=== PATIENT | male | born 1945 | race Caucasian/White ===

== ENCOUNTER 2018-09-01 14:31 | Emergency (ER) | payer MEDICARE, OTHER, SELFPAY ==
[2018-09-01 14:33] VITALS: BP 142/89; PULSE 89; RESP 16; TEMP 36.3; O2SAT 96; BMI 43.7
--- NOTE | 2018-09-01 15:26 | ED.DCSUM_ITS ---
- ER Visit Summary Date of Service: 09/01/18 Chief Complaint: Left leg injury History of Present Illness: The patient is a 73 M presenting for evaluation secondary to left leg injury. Patient reports that he was unable to get his door closed in his car, he was backing out of the garage and caught the door on some landscaping and folded it backwards. He then pulled back into the garage and was trying to get out of his car holding on the door and it gave way and his left leg also gave way. She states that he had a significant amount of pain in his left ankle and he was unable to bear weight. He required to call 911 to get up. He denies hitting his head or loss of consciousness. Physical Examination: Physical exam unremarkable except for lower extremity exam. Patient has no pain in the hip, no pain with logroll. There is a minimal amount of medial joint line tenderness of the knee, with normal range of motion and a well-healed surgical scar. Left ankle shows some swelling with medial malleoli tenderness. Somewhat limited range of motion secondary to pain, normal distal pulses normal distal sensation. Test Results: Left knee and left ankle and left foot x-rays are negative for acute pathology Emergency Department Course and Treatment: Patient presented for evaluation secondary to a fall with an ankle injury. Radiographs were negative. Radiology said there is a potential lucency at the distal portion of the patient's fifth metatarsal. He does not have pain here. He states that he was stepped on by a horse 20 years ago that likely is the cause of that change. Patient at this point has an ankle sprain and will be discharged with an Daquan wrap and conservative treatment. Disposition: Discharge Impression: 1. Left ankle sprain This note was generated with Savalanche dictation software. It may contain incorrect words, spelling, and punctuation that were not noted in review of the chart prior to signing ED Disposition - Plan for ED Patient: Disposition: Home or Assisted Living Chief Complaint: Fall Diagnosis: Left ankle sprain Instructions: ED Sprain Ankle No X Ray Referrals: Angel Fields [Primary Care Provider] - As Needed
--- NOTE | 2018-09-01 15:32 | RAD_ITS ---
STUDY: X-RAY - LEFT ANKLE REASON FOR EXAM: Male, 73 years old. Fall TECHNIQUE: 3 view(s) of the ankle. COMPARISON: None. FINDINGS: There is no evidence of fracture or dislocation. There are moderate degenerative changes noted. There is soft tissue swelling. There are no radiodense foreign bodies. RAD/Ankle min 3 Views IMPRESSION: No fracture or dislocation. Moderate degenerative changes. Soft tissue swelling. Electronically Signed: Phill Hammonds, at 15:52 EST Tel , Service support ,
--- NOTE | 2018-09-01 15:32 | RAD_ITS ---
STUDY: X-RAY - LEFT KNEE REASON FOR EXAM: Male, 73 years old. Fall TECHNIQUE: 2 view(s) of the knee. COMPARISON: None. FINDINGS: There is no evidence of fracture or dislocation. There are postsurgical changes from left knee arthroplasty with intact hardware in satisfactory alignment. There are vascular calcifications noted. There are no radiodense foreign bodies. RAD/Knee 1 or 2 Views IMPRESSION: No fracture or dislocation. Electronically Signed: Phill Hammonds, at 15:57 EST Tel , Service support ,
--- NOTE | 2018-09-01 15:32 | RAD_ITS ---
STUDY: X-RAY - LEFT FOOT CLINICAL: Male, 73 years old. Fall TECHNIQUE: 3 view(s) of the foot. COMPARISON: None. FINDINGS: There is a lucency at the distal aspect of the fifth metatarsal which may represent a nondisplaced fracture. The remainder of the visualized osseous structures are intact. There are calcaneal spurs. There are severe degenerative changes in the midfoot. There are no radiodense foreign bodies. There are vascular calcifications noted. RAD/Foot min 3 Views IMPRESSION: Lucency at the distal aspect of the fifth metatarsal which may represent a nondisplaced fracture. Correlation for pain in this area is recommended. No additional fractures. Calcaneal spurs. Severe degenerative changes in the midfoot. Electronically Signed: Phill Hammonds, at 15:55 EST Tel , Service support ,
[2018-09-01 16:43] VITALS: BP 138/74; PULSE 81; RESP 16; O2SAT 95
== END 2018-09-01 16:44 | disposition home or self-care (01) ==
PROVIDERS: Emergency Provider Emergency Medicine; Family Provider Internal Medicine Infectious Disease; PCP Internal Medicine Infectious Disease
DX: S93.402A Sprain of unspecified ligament of left ankle, initial encounter (principal); W17.89XA Other fall from one level to another, initial encounter; Y93.89 Activity, other specified; Y92.008 Other place in unspecified non-institutional (private) residence as the place of occurrence of the external cause; I25.10 Atherosclerotic heart disease of native coronary artery without angina pectoris; I10 Essential (primary) hypertension; E66.9 Obesity, unspecified; Z68.41 Body mass index [BMI] 40.0-44.9, adult; Z79.82 Long term (current) use of aspirin; Z79.899 Other long term (current) drug therapy
CPT/HCPCS: 73560; 73610; 73630; 99284

== ENCOUNTER → 2019-05-01 15:01 | Outpatient (CLI) | payer MEDICARE, OTHER, SELFPAY ==
[2019-05-01 16:08] LABS: Absolute Lymphocyte Count 1.04 X10^3/uL (0.83-4.51); Absolute Neutrophil Count 4.1 X10^3/uL (2.0-7.7); Basophil# 0.06 X10^3/uL; Eosinophil# 0.28 X10^3/uL; Eosinophils% 4.5 % (0-5); Hematocrit 48.4 % (40-54); Hemoglobin 16.6 g/dL (13.0-16.5); Lymphocyte # 1.04 X10^3/ul (4.0); Lymphocyte % 16.6 % (19-41); Mean Corp Hgb Conc 34.3 g/dL (32-36); Mean Corpuscular Hgb 33.2 pg (27.0-32.0); Mean Corpuscular Volume 96.8 fL (80-94); Mean Platelet Vol. 9.6 fl (6.2-12.0); Monocyte# 0.75 X10^3/uL; NRBC Flagged by Analyzer 0 % (0-5); Neutrophil # 4.07 X10^3/uL (2.7-7.7); Neutrophil % 65.1 % (47-70); Platelet Count 203 K/mm3 (150-450); RBC Distribution Width CV 15.1 % (11.6-14.6); RBC Distribution Width SD 53.6 fl (35.1-43.9); White Blood Count 6.3 K/mm3 (4.4-11.0)
[2019-05-01 16:14] LABS: Prothrombin Time (Protime)PT. 13.1 SECONDS (11.7-14.9)
[2019-05-01 16:15] LABS: Partial Thromboplast Time 26.2 Seconds (24.1-36.2)
[2019-05-03 16:40] LABS: Anti-Nuclear Antibody Test Negative (.)
== END ==
PROVIDERS: Family Provider Internal Medicine Infectious Disease; PCP Internal Medicine Infectious Disease; Referring Provider Dermatology Pediatric Dermatology; Visit Provider Dermatology Pediatric Dermatology
DX: D69.2 Other nonthrombocytopenic purpura (principal); L40.0 Psoriasis vulgaris
CPT/HCPCS: 36415; 85025; 85610; 85730; 86038

== ENCOUNTER → 2020-06-16 | Outpatient (CLI) | payer MEDICARE, SELFPAY | END | disposition home or self-care (01) | PROVIDERS: PCP Internal Medicine Infectious Disease; Referring Provider Otolaryngology Otolaryngology/Facial Plastic Surgery; Visit Provider Otolaryngology Otolaryngology/Facial Plastic Surgery | DX: J32.9 Chronic sinusitis, unspecified (principal) | CPT/HCPCS: 87070; 87205 ==

== ENCOUNTER 2020-07-12 09:10 | Inpatient (IN) | payer MEDICARE, SELFPAY ==
[2020-07-12] VITALS (8 sets, daily range): BP systolic 119–174; BP diastolic 52–114; PULSE 68–98; RESP 12–18; TEMP 36.6–37.3; O2SAT 92–96; BMI 42.0; BMI 41.2
--- NOTE | 2020-07-12 09:22 | ED.RN ---
Addendum entered by Rosalba Coppola 07/12/20 11:02: correction, cath through groin, stent through rt wrist. Original Note: bilat ankle edema, edema to rt wrist. cath through rt wrist. stent through groin.
--- NOTE | 2020-07-12 10:03 | EKG12_ITS ---
Test Reason : WEAKNESS Blood Pressure : / mmHG Vent. Rate : 072 BPM Atrial Rate : 072 BPM P-R Int : 280 ms QRS Dur : 124 ms QT Int : 408 ms P-R-T Axes : 081 081 111 degrees QTc Int : 446 ms Sinus rhythm with 1st degree A-V block with occasional Premature ventricular complexes Non-specific intra-ventricular conduction delay Nonspecific ST and T wave abnormality Poor R- wave progression Anterior MO, age undetermined, cannot be excluded Abnormal ECG Confirmed by JEWELL MADSEN, DEIRDRE ([id number]), communications editor KIP WISE ([id number]) on 07/14/2020 1:25:35 PM Referred By: /RUEL Confirmed By:DEIRDRE CORCORAN MD
--- NOTE | 2020-07-12 10:03 | RAD_ITS ---
STUDY: X-RAY CHEST REASON FOR EXAM: Male, 75 years old. WEAKNESS, STATUS POST CARDIAC STENT INSERTION TUESDAY TECHNIQUE: Single AP portable view of the chest. COMPARISON: 2012 FINDINGS: EKG leads overlie the chest. Stable appearance of a left subclavian pacemaker The lungs are clear and expanded. There is no demonstrated pleural abnormality. Normal size heart. Normal mediastinum and jay. Normal visualized pulmonary arteries. There is atherosclerotic calcification of the aortic arch with tortuosity. There are diffuse degenerative changes of the visualized thoracic spine. There is degenerative osteoarthritis of the bilateral shoulders. There is no demonstrated abnormality of the visualized soft tissue structures of the upper abdomen. RAD/Chest 1 View (Portable) IMPRESSION: No acute pulmonary process Electronically Signed: Tad Snyder MD at 11:29 EST , Service support ,
--- NOTE | 2020-07-12 10:26 | ED.DCSUM_ITS ---
History of Present Illness Chief Complaint: Weakness Informant: Patient Onset: Days - 2-3 Context: Gradual Onset Timing: Continuous Quality: mostly pain due to gout Location: R wrist, L > R ankles, L 1st MTPJ Current Severity: Moderate Maximum Severity: Severe Worsened by: moving, trying to WB Relieved by: resting and remaining still Associated Symptoms: none Narrative: Patient was just discharged from [facility] after staying for about 4 days for cardiac reasons. He was having chest pain, had a heart cath via right femoral artery showing 80% coronary blockage, but too much IV dye was used for them to be able to put a stent in so they repeated the cath the next day using the right radial artery to place a stent. He has history of gout and had a flareup several weeks ago involving both ankles and his left great toe, as well as his right wrist. He was placed on a course of prednisone that improved this to baseline, he finished that 2 or so weeks ago. While he was lying in the hospital within the past several days, he states he felt the gout slowly/gradually flaring up in the same areas, including the right wrist which started having pain and swelling before the heart cath was performed through it 2 days ago. He was discharged yesterday, he states he was unable to walk out of the hospital to the car and had to be carried, and he has continued to worsen at home, unable to get out of bed due to the swelling and pa in in the affected joints, and his family members are unable to care for him. He denies any new symptoms otherwise. No fevers or chills, no shortness of breath, chest pain, GI symptoms, lightheadedness, focal neurologic symptoms. - Past Medical History (1) Gout Status: Chronic (2) Ankylosing spondylitis Status: Chronic (3) CAD (coronary artery disease) Status: Chronic (4) Hypertension Status: Chronic (5) Osteoarthritis Status: Chronic (6) Pre-diabetes Status: Chronic (7) Sleep apnea in adult Status: Chronic Past Medical History - Allergies and Home Meds Allergies/Adverse Reactions: Allergies misoprostol [From Cytotec] Allergy (Verified 07/12/20 09:11) Hives Penicillins Allergy (Verified 07/12/20 09:11) Hives Sulfa (Sulfonamide Antibiotics) Allergy (Verified 07/12/20 09:11) Hives artificial sweetners Allergy (Uncoded 07/12/20 09:11) Diarrhea Primary Care Physician: Angel Fields MD [Primary Care Provider] - Surgical History: coronary bypass surgery - 1993, herniorrhaphy, pacemaker implantation - with ICD, total knee arthroplasty - bilateral 2007, - - neck surgery 2001 Lives: With Family Smoking Status: Former smoker - Family History Maternal Family History: Reports: Heart Disease - age 82 Paternal Family History: Reports: No pertinent history - age 95 Sibling Family History: Reports: Cancer - brother age 58, prostate Offspring Family History: Reports: - - 4 daughters Review of Systems General: Denies: Chills, Fever, Sweats Eyes: Denies: Visual changes - bilaterally, Diplopia ENT: Denies: Bilateral ear pain, Rhinorrhea, Sore throat Cardiovascular: Denies: Chest pain, Palpitations Respiratory: Denies: Dyspnea, Cough, Dyspnea on exertion Gastrointestinal: Denies: Abdominal pain, Nausea, Vomiting, Diarrhea, Melena, Hematochezia Genitourinary: Denies: Dysuria, Hematuria, Frequency Musculoskeletal: Reports: Arthralgias, Swelling - At multiple joints due to gout per patient, Extremity Pain - Due to gout. Denies: Myalgias, Back pain Skin: Denies: Rash, Wounds Neurological: Reports: Numbness - Chronic throughout right upper extremity to the shoulder, unchanged. Denies: Headache, Weakness Physical Exam Vital Signs/Narrative: Vital Signs Temp Pulse Resp BP Pulse Ox 07/12/20 09:12 98.5 F 68 12 151/73 H 93 Inital Vital Signs reviewed: Yes General: Well nourished, Well developed, No Acute Distress Head: Normocephalic, Atraumatic Eyes: Perrl, EOMI ENT: Moist mucous membranes, No rhinorrhea Neck: Supple, Nontender Cardiovascular: Regular rate, Regular rhythm, No murmurs Respiratory: No distress, CTA bilaterally, Chest nontender Abdomen: Soft, Nontender, Nondistended, Normal bowel sounds Back: Nontender, Normal Inspection Extremities: Tenderness - With slight increased warmth and lack of erythema or skin lesions in both ankles, left first MTPJ, and right wrist. Patient is able to move them with short arc range of motion but limited due to pain., Edema - Swelling associated with the above noted joints, but the right great toe is more swollen than the left. The right is not tender., - - 2+ palpable distal pulses including the right radial, where there is no purpura or signs of excessive postprocedural bleeing. Skin: Normal color, No rash - No erythema or signs of cellulitis, No Trauma Neurological: Alert, Oriented x3, Cranial nerves II-XII grossly intact, Normal Strength, Parasthesia - Right upper extremity chronic per patient Psychological: Normal affect, Normal Mood Diagnostic/Tx/Re-eval Chest X-Ray - ED: 1 View, Read by ED Physician, No Acute Disease Impressions Chest X-Ray 07/12/20 10:03 IMPRESSION: No acute pulmonary process Electronically Signed: Tad Snyder MD at 11:29 EST , Service support , 07/12/20 10:03 Chest 1 View (Portable) [RAD] Stat Laboratory Results 07/12/20 07/12/20 07/12/20 09:48 10:45 11:40 WBC 11.0 RBC 4.67 Hgb 14.2 Hct 42.6 MCV 91.2 MCH 30.4 MCHC 33.3 RDW Std Deviation 53.3 H RDW Coeff of David 15.9 H Plt Count 230 MPV 9.4 Immature Gran % (Auto) 0.700 Neut % (Auto) 81.2 H Lymph % (Auto) 5.7 L [place] % (Auto) 10.2 H Eos % (Auto) 1.7 Baso % (Auto) 0.5 Absolute Neuts (auto) 9.0 H Absolute Lymphs (auto) 0.63 L Nucleated RBC % 0 Sodium 137 Potassium 3.5 Chloride 104 Carbon Dioxide 25.0 Anion Gap 8 BUN 22 H Creatinine 1.33 H Estim Creat Clear Calc 46.51 Est GFR (MDRD) Af Amer 67 Est GFR (MDRD) Non-Af 55 L BUN/Creatinine Ratio 16.5 Glucose 79 Uric Acid 7.0 Calcium 8.7 Urine Color Yellow Urine Clarity Clear Urine pH 6.0 Ur Specific [place] 1.015 Urine Protein 30 H Urine Glucose (UA) Normal Urine Ketones 15 H Urine Occult Blood 25 H Urine Nitrite Negative Urine Bilirubin Negative Urine Urobilinogen 1 H Ur Leukocyte Esterase 25 H - Rhythm Strip Rhythm Strip: Sinus Rhythm Rate: 70 Ectopy: PVC(s) - EKG Initial EKG Interpretation: Sinus Rhythm, No Acute Injury Pattern, AV Block - 1st deg Prior: Unchanged - Medical Decision Making Patient was given a [place] and Solu-Medrol for what appears to be gouty arthritis in multiple joints. I am at a low suspicion for pseudoaneurysm in his right wrist, especially given the history and the fact that I can feel a good pulse at this necessarily feel aneurysmal however, he is fairly swollen in his wrist and into his right hand with pitting edema. He states it is happened with gout in his right wrist and look like this in the past. On reevaluation after the above medications and work-up, he is able to move his ankles better than he was before, he states it hurts less but he still cannot stand or walk without significant pain and wants to stay in the hospital which I think is reasonable for symptomatic care and PT/OT evaluations at the least. His family called and is pushing for this as well, they are upset that he was discharged in the condition that he was from [place], the patient wants to stay here and does not want to go back to [place]. ED Disposition - Plan for ED Patient: Disposition: Acute Care Hospital [facility] Diagnosis: Inability to ambulate due to multiple joints, Gouty arthritis of both ankles Referrals: Angel Fields MD [Primary Care Provider] -
[2020-07-12] MEDS: HYDROcodone Bitartrate/Apap 5/325 Tablet PO (10:57)
[2020-07-12] MEDS: MethylPREDNISolone 125 MG/2 ML Vial IV (10:58)
[2020-07-12 11:06] LABS: Absolute Lymphocyte Count 0.63 X10^3/uL (0.83-4.51); Basophil# 0.05 X10^3/uL; Basophil% 0.5 % (0-1); Eosinophil# 0.19 X10^3/uL; Eosinophils% 1.7 % (0-5); Hematocrit 42.6 % (40-54); Hemoglobin 14.2 g/dL (13.0-16.5); Lymphocyte # 0.63 X10^3/ul (4.0); Lymphocyte % 5.7 % (19-41); Mean Corp Hgb Conc 33.3 g/dL (32-36); Mean Corpuscular Hgb 30.4 pg (27.0-32.0); Mean Corpuscular Volume 91.2 fL (80-94); Mean Platelet Vol. 9.4 fl (6.2-12.0); Monocyte# 1.13 X10^3/uL; Monocyte% 10.2 % (0-10); NRBC Flagged by Analyzer 0 % (0-5); Neutrophil # 8.95 X10^3/uL (2.7-7.7); Neutrophil % 81.2 % (47-70); Platelet Count 230 K/mm3 (150-450); RBC Distribution Width CV 15.9 % (11.6-14.6); RBC Distribution Width SD 53.3 fl (35.1-43.9); Red Blood Count 4.67 M/mm3 (4.6-6.2)
[2020-07-12 11:37] LABS: Anion Gap 8 (5-15); BUN 22 mg/dL (7-18); BUN/Creat Ratio 16.5 RATIO (10-20); Calcium,Total 8.7 mg/dL (8.5-10.1); Chloride 104 mmol/L (98-107); Creatinine, Serum 1.33 mg/dL (0.70-1.30); EST Glomerular Filtration Rate 55 mL/min (>60); Est Glom Filt Rate - Afr Amer 67 mL/min (>60); Estimated Creatinine Clearance 46.51 ml/min; Glucose 79 mg/dL (74-106); Potassium 3.5 mmol/L (3.5-5.1); Sodium Level 137 mmol/L (136-145)
[2020-07-12 11:49] LABS: Color, Urine Yellow (Yellow); Glucose, Dipstick Normal (Normal); Ketone-Dipstick 15 mg/dl (Negative); Leukocyte Esterase-Dipstick 25 /ul (Negative); Nitrite-Dipstick Negative (Negative); Occult Blood-Urine 25 /ul (Negative); Protein-Dipstick 30 mg/dl (Negative); Specific Gravity, Urine 1.015 (1.002-1.030); Urine Bilirubin Dipstick Negative (Negative); Urine Clarity Clear (Clear); Urine Urobilinogen 1 mg/dl (Normal)
--- NOTE | 2020-07-12 12:08 | CM.ED ---
SOCIAL WORK Informant: industrial technologistCheryl Reason for Consult: Discharge Planning Updated by nursing staff daughter, Wendi requesting to speak with SW. Call to patient's daughter, Wendi Yanez ([phone]). Per patient's daughter, patient was at [facility] on Tuesday for heart cath and had stent placed on . Daughter states patient was discharged on Tuesday. Daughter reports frustration with [facility] releasing patient and not being able to care for self. Daughter states patient has been laying in bed since Tuesday. Daughter reports it took 4 people to assist patient to car at discharge on Tuesday and family had to call squad to get patient out of the car once home. Daughter states prior to Tuesday patient was independent with his walker. Daughter states patient was dressing self, getting meals, using the restroom and driving self to appointments. Daughter believes patient would benefit from rehab and requests referral to [facility] inpatient rehab as first choice and TCU as second choice. Discussed the above with patient. Patient in agreement with plan for rehab. Message left for Janay on referral line. Plan: Admit, Requesting rehab vs TCU. SW to follow up Tuesday. Harjinder Orellana, MACHINE SET UP OPERATOR, COMPLIANCE PROFESSIONAL
[2020-07-12 12:18] LABS: Red Blood Cells-Urine 0-5 SEEN /hpf (0-5); Squamous Epithelial Cells - UA 0-5 SEEN /hpf (0-5); White Blood Cells 0-5 SEEN /hpf (0-5)
[2020-07-12 12:19] LABS: Bacteria 2+ /hpf (None Seen); Coarse Granular Cast 0-5 SEEN /lpf (0-5 /lpf); Mucous, Urine RARE /hpf (<or=2+); Renal Epithelial Cells 0-5 SEEN /hpf (0-5)
--- NOTE | 2020-07-12 12:25 | PCM.HP.STD ---
Problem List (1) Gouty arthritis of both ankles Status: Acute (2) Inability to ambulate due to multiple joints Status: Acute (3) Ankylosing spondylitis Status: Chronic (4) CAD (coronary artery disease) Status: Chronic Qualifiers: Coronary Disease-Associated Artery/Lesion type: unspecified vessel or lesion type [place] vs. transplanted heart: [place] heart Associated angina: angina presence unspecified Qualified Code(s): I25.10 - Atherosclerotic heart disease of [place] coronary artery without angina pectoris (5) Gout Status: Chronic (6) Hypertension Status: Chronic Qualifiers: Hypertension type: essential hypertension Qualified Code(s): I10 - Essential (primary) hypertension (7) Osteoarthritis Status: Chronic Qualifiers: Osteoarthritis location: unspecified site (8) Pre-diabetes Status: Chronic (9) Sleep apnea in adult Status: Chronic (10) Status post revision of total replacement of left knee Status: Acute Comment: Dr Anderson 08/18/15, kevin (11) Status post total left knee replacement Status: Acute (12) Obesity (BMI 30-39.9) Status: Chronic History of Present Illness Date of Admission: 07/12/20 Chief Complaint: Swelling of the joints The patient is a 75 year old M with history of gout with recent flareup for which he took a course of prednisone and completed 2 weeks ago came to ED with swelling of multiple joints for 2 to 3 days. Patient was recently admitted in [facility] for coronary arteries/AR and had PCI of 80% stenosis of one of the coronary artery disease and had cardiac cath on past Tuesday through right femoral artery and through the right radial artery. He said he had swelling started prior to cardiac cath. Patient has chronic cervical spondylosis with cervical canal stenosis and had cervical spine fusion from C1-C7 and also has lumbar spinal stenosis and degenerative changes. The patient was unable to move from the bed after he was transferred to home from [facility] where he required assistance too. He has joint swelling that he started with left big toe, progressed to foot and the right foot and right hand. Patient was given Solu-Medrol 125 mg IV. At home he is taking allopurinol 100 mg daily and is continued. Past Medical History Past Medical History (Chronic Problems): Chronic Problems Gout (Chronic) Pre-diabetes (Chronic) CAD (coronary artery disease) (Chronic) Ankylosing spondylitis (Chronic) Hypertension (Chronic) Sleep apnea in adult (Chronic) Obesity (BMI 30-39.9) (Chronic) Osteoarthritis (Chronic) Allergies misoprostol [From Cytotec] Allergy (Verified 07/12/20 09:11) Hives Penicillins Allergy (Verified 07/12/20 09:11) Hives Sulfa (Sulfonamide Antibiotics) Allergy (Verified 07/12/20 09:11) Hives artificial sweetners Allergy (Uncoded 07/12/20 09:11) Diarrhea Home Medications: Ambulatory Orders Medication Instructions Recorded Tamsulosin HCl [Flomax] 0.4 mg PO DAILY 01/21/17 Gabapentin [Neurontin] 300 mg PO BID PRN PRN #60 tab 02/10/17 Allopurinol 100 mg PO DAILY 07/12/20 Aspirin [Aspirin, Baby] 81 mg PO DAILY@0800 07/12/20 Carvedilol [Coreg (Beta Yanira)] 6.25 mg PO BID 07/12/20 Clopidogrel Bisulfate [Plavix] 75 mg PO DAILY 07/12/20 Losartan Potassium [Cozaar] 50 mg PO DAILY 07/12/20 glyBURIDE [Micronase] 2.5 mg PO DAILY@0800 07/12/20 Surgical History: coronary bypass surgery - 1993, herniorrhaphy, pacemaker implantation - with ICD, total knee arthroplasty - bilateral 2007, - - neck surgery 2001 Psychiatric History: No pertinent psych hx Lives: With Family Smoking Status: Former smoker - *Family History Maternal History Items: Heart Disease - age 82 Paternal History Items: No pertinent history - age 95 Sibling History Items: Cancer - brother age 58, prostate Offspring History Items: - - 4 daughters Review of Systems Constitutional: Denies: Chills, Fever, Weight Change HEENT: Denies: Head Aches, Sinus Congestion, Sinus Drainage Cardiovascular: Denies: Chest Pain, Palpitations Respiratory: Denies: Cough, Shortness of breath at rest, Sputum production Gastrointestinal: Denies: Abdominal Pain, Nausea, Vomiting Genitourinary: Denies: Dysuria Musculoskeletal: Reports: Back Pain, Joint Pain, Joint stiffness, Joint swelling, Joint Tenderness, Neck Pain Skin: Denies: Rash, Wounds Neurological: Reports: Balance problems, Incoordination. Denies: Focal weakness, Numbness, Tingling Psychiatric: Denies: Anxiety, Depression, Homicidal Ideations, Suicidal Ideations Hematologic/ Lymphatic: Denies: Easy Bruising, Easy Bleeding VTE Information - Inpt Only VTE Present on Admission: No VTE Mechan Device Prophylaxis: None VTE Pharm Prophylaxis ordered?: Yes Patient Problems: Active and Suspected Problems Inability to ambulate due to multiple joints (Acute) Gouty arthritis of both ankles (Acute) - Physical Exam Vitals/I&O's: Vital Signs Temp Pulse Resp BP Pulse Ox 98.5 F 73 18 172/114 H 96 07/12/20 09:12 07/12/20 11:30 07/12/20 11:30 07/12/20 11:30 07/12/20 11:30 Oxygen Delivery Method Room Air Weight: 284 lb 6.341 oz Body Mass Index (BMI) 42.0 Finger Stick Blood Glucose 91 General: Alert, Oriented x3, Cooperative HEENT: Atraumatic, PERRLA, EOMI, Normocephalic Oral: No Gingival or Mucosal Lesions/ Ulcerations Neck: Supple, No JVD, Negative Carotid Bruits Lungs: Clear to auscultation, No rhonchi, No wheeze, No rales, Diminished - Air entry diminished bilateral lung bases Cardiovascular: Regular rate, Regular Rhythm, Normal S1, Normal S2, No murmurs, - - Sinus rhythm with PVCs Abdomen: Bowel Sounds Present, Soft, Non Tender, Non-Distended Extremities: Capillary Refill Less than 3 Seconds, Edema - Mild edema of bilateral ankle joint Skin: No rashes, No breakdown Musculoskeletal: Arthritic Changes, Tenderness - Swelling and tenderness present over both feet more on the left great toe and right wrist. Any movement is painful. ROM restricted. Neurological: Cranial nerves II-XII grossly intact, Deep Tendon Reflexes 2+/4 and Symmetrical, Neuro grossly intact Psych/Mental Status: Normal Affect, Appropriate Laboratory Results 07/12/20 09:48: WBC 11.0, RBC 4.67, Hgb 14.2, Hct 42.6, MCV 91.2, MCH 30.4, MCHC 33.3, RDW Std Deviation 53.3 H, RDW Coeff of David 15.9 H, Plt Count 230, MPV 9.4, Immature Gran % (Auto) 0.700, Neut % (Auto) 81.2 H, Lymph % (Auto) 5.7 L, Ida % (Auto) 10.2 H, Eos % (Auto) 1.7, Baso % (Auto) 0.5, Absolute Neuts (auto) 9.0 H, Absolute Lymphs (auto) 0.63 L, Nucleated RBC % 0 07/12/20 10:45: Sodium 137, Potassium 3.5, Chloride 104, Carbon Dioxide 25.0, Anion Gap 8, BUN 22 H, Creatinine 1.33 H, Estim Creat Clear Calc 46.51, Est GFR (MDRD) Af Amer 67, Est GFR (MDRD) Non-Af 55 L, BUN/Creatinine Ratio 16.5, Glucose 79, Uric Acid 7.0, Calcium 8.7 07/12/20 11:40: Urine Color Yellow, Urine Clarity Clear, Urine pH 6.0, Ur Specific [place] 1.015, Urine Protein 30 H, Urine Glucose (UA) Normal, Urine Ketones 15 H, Urine Occult Blood 25 H, Urine Nitrite Negative, Urine Bilirubin Negative, Urine Urobilinogen 1 H, Ur Leukocyte Esterase 25 H, Urine RBC 0-5 SEEN, Urine WBC 0-5 SEEN, Ur Squamous Epith Cells 0-5 SEEN, Ur Renal Epithelial Cell 0-5 SEEN, Urine Bacteria 2+, Coarse Granular Casts 0-5 SEEN, Urine Mucus RARE Current Medications Sodium Chloride () 1,000 mls @ 75 mls/hr IV .[id number] ARIEL Assessment/Plan All Active Problems Inability to ambulate due to multiple joints (Acute) Gouty arthritis of both ankles (Acute) Status post revision of total replacement of left knee (Acute) Status post total left knee replacement (Acute) The patient is a 75 year old M with history of gout with recent flareup for which he took a course of prednisone and completed 2 weeks ago came to ED with swelling of multiple joints for 2 to 3 days. 1. Acute gouty exacerbation of chronic gouty arthritis: Patient has tophi on the left great toe. Started on Solu-Medrol 1 more dose and then transition to prednisone from tomorrow a.m. IV fluid normal saline 75 mill per hour for mild dehydration and prevent contrast-induced nephropathy. Continue allopurinol. PT and OT. Patient has mild relief after Solu-Medrol 125 mg given in the ER. Pain control. 2. Coronary artery disease with recent PCI: Continue home medication aspirin, Plavix, carvedilol, losartan and atorvastatin. Patient does not have chest pain or shortness of breath. 3. Paroxysmal A. fib on Xarelto 4. Prediabetes, glucose is controlled. Patient on glimepiride 2.5 mg daily. 5. BPH on Flomax. 6. Dyslipidemia 7.VTE prophylaxis: On Xarelto. Inpatient E&M: 88404 Init Hosp L3
[2020-07-12] MEDS: 0.9% Normal Saline 1,000 ML 75 ML IV (13:57)
[2020-07-12] MEDS: Menthol/Lanolin/Calamine/Znox 113 GM Tube 1 APPLIC TOPICAL ×2 (17:38→21:42)
[2020-07-12] MEDS: Tamsulosin HCl 0.4 MG Capsule PO (17:38)
[2020-07-12] MEDS: Enoxaparin 40 MG/0.4 ML Syringe SC (17:39)
[2020-07-12] MEDS: Carvedilol 6.25 MG Tablet PO (21:45)
[2020-07-12] MEDS: Atorvastatin Calcium 40 MG Tablet PO (21:45)
[2020-07-13] MEDS: 0.9% Normal Saline 1,000 ML 75 ML IV (01:37)
[2020-07-13 03:45] VITALS: BP 126/61; PULSE 65; RESP 18; TEMP 36.7; O2SAT 96
[2020-07-13] MEDS: Menthol/Lanolin/Calamine/Znox 113 GM Tube 1 APPLIC TOPICAL ×2 (03:53→22:00)
[2020-07-13 06:09] LABS: Absolute Lymphocyte Count 0.39 X10^3/uL (0.83-4.51); Absolute Neutrophil Count 8.8 X10^3/uL (2.0-7.7); Basophil# 0.01 X10^3/uL; Basophil% 0.1 % (0-1); Hematocrit 40.9 % (40-54); Hemoglobin 13.3 g/dL (13.0-16.5); Lymphocyte # 0.39 X10^3/ul (4.0); Mean Corp Hgb Conc 32.5 g/dL (32-36); Mean Corpuscular Hgb 29.7 pg (27.0-32.0); Mean Corpuscular Volume 91.3 fL (80-94); Mean Platelet Vol. 9.5 fl (6.2-12.0); Monocyte# 0.39 X10^3/uL; NRBC Flagged by Analyzer 0 % (0-5); Neutrophil # 8.84 X10^3/uL (2.7-7.7); Neutrophil % 91.2 % (47-70); POSITIVE DIFFERENTIAL YES; Platelet Count 229 K/mm3 (150-450); RBC Distribution Width CV 15.8 % (11.6-14.6); RBC Distribution Width SD 52.9 fl (35.1-43.9); Red Blood Count 4.48 M/mm3 (4.6-6.2); White Blood Count 9.7 K/mm3 (4.4-11.0)
[2020-07-13 06:24] LABS: Differential Indicated SCAN CRITERIA MET
[2020-07-13 06:48] VITALS: O2SAT 93
[2020-07-13 06:50] LABS: ALB/GLOB Ratio 0.6 RATIO (0.9-2.4); AST(SGOT) 17 U/L (15-37); Alanine Aminotransfer ALT/SGPT 17 U/L (16-61); Albumin, Serum 2.4 g/dL (3.2-5.0); Alkaline Phosphatase 53 U/L (45-117); Anion Gap 8 (5-15); BUN 25 mg/dL (7-18); BUN/Creat Ratio 19.7 RATIO (10-20); Calcium,Total 8.4 mg/dL (8.5-10.1); Chloride 105 mmol/L (98-107); Creatinine, Serum 1.27 mg/dL (0.70-1.30); Differential Comment SCANNED; EST Glomerular Filtration Rate 58 mL/min (>60); Est Glom Filt Rate - Afr Amer 71 mL/min (>60); Estimated Creatinine Clearance 48.71 ml/min; Globulin 3.9 g/dL (2.2-4.2); Glucose 226 mg/dL (74-106); Potassium 3.7 mmol/L (3.5-5.1); Protein, Total 6.3 g/dL (6.4-8.2); Sodium Level 136 mmol/L (136-145)
[2020-07-13] MEDS: glyBURIDE 2.5 MG Tablet PO (09:30)
[2020-07-13] MEDS: Famotidine 20 MG Tablet PO (09:30)
[2020-07-13] MEDS: Clopidogrel Bisulfate 75 MG Tablet PO (09:30)
[2020-07-13] MEDS: Carvedilol 6.25 MG Tablet PO ×2 (09:30→22:00)
[2020-07-13] MEDS: Allopurinol 100 MG Tablet PO (09:31)
[2020-07-13] MEDS: predniSONE 20 MG Tablet 40 MG PO (09:31)
[2020-07-13] MEDS: Aspirin 81 MG TAB.CHEW PO (09:31)
[2020-07-13] MEDS: Losartan Potassium 50 MG Tablet PO (09:32)
[2020-07-13] MEDS: Enoxaparin 40 MG/0.4 ML Syringe SC (09:32)
[2020-07-13] MEDS: Tamsulosin HCl 0.4 MG Capsule PO (09:32)
[2020-07-13 09:45] VITALS: BP 135/71; PULSE 91; RESP 18; TEMP 37; O2SAT 95
[2020-07-13 12:00] VITALS: PULSE 88
--- NOTE | 2020-07-13 12:43 | PN_ITS ---
Patient Problems: Active and Suspected Problems Inability to ambulate due to multiple joints (Acute) Gouty arthritis of both ankles (Acute) Status post revision of total replacement of left knee (Acute) Dr Anderson 08/18/15kevin Status post total left knee replacement (Acute) Reason for Visit: Follow-up for the acute gout exacerbation. Objective: Seen and examined. As per the nursing staff, patient's daughter had the concern of DVT about right radial artery cardiac cath access site. Patient himself feels better and denies any pain in the right wrist. Left great toe and foot and right foot and left hand feels better. Patient can stand up and walk with assistance. Heart rate and blood pressure are in normal range. Physical exam General: Alert, Oriented x3, Cooperative HEENT: Atraumatic, PERRLA, EOMI, Normocephalic Oral: No Gingival or Mucosal Lesions/ Ulcerations Neck: Supple, No JVD, Negative Carotid Bruits. Patient has chronic cervical spine and lumbar spine degenerative spondylitic changes stiff neck and back. Lungs: Air entry diminished in bilateral lung bases. No crepitation/rhonchi Cardiovascular: Regular rate, Regular Rhythm, Normal S1, Normal S2, holosystolic murmur over LLSB and cardiac apex. Abdomen: Bowel Sounds Present, Soft, Non Tender, Non-Distended : No renal angle tenderness. No suprapubic tenderness. Extremities: Right wrist, catheter access site no hematoma. No thrill or bruit heard. No tenderness at the site. Mild bilateral ankle edema. Capillary Refill Less than 3 Seconds Skin: No rashes, No breakdown Musculoskeletal: Tenderness present over left and right feet and left hand. Redness and inflammation has decreased. No Tenderness to Palpation of Joints or Extremities Neurological: Cranial nerves II-XII grossly intact, Deep Tendon Reflexes 2+/4 and Symmetrical, Neuro grossly intact Psych/Mental Status: Normal Affect, Appropriate. Vitals/I&O's: Vital Signs Temp Pulse Resp BP Pulse Ox 98.6 F 88 18 135/71 H 95 07/13/20 09:45 07/13/20 12:00 07/13/20 09:45 07/13/20 09:45 07/13/20 09:45 Oxygen Delivery Method Room Air Weight: 279 lb 1.683 oz Body Mass Index (BMI) 41.2 Finger Stick Blood Glucose 91 Intake and Output for Last 24 Hours 07/11/20 07/12/20 07/13/20 23:59 23:59 23:59 Intake Total 300 / 500 1225 / 1225 Output Total 600 / 1250 1000 / 1000 Balance -300 / -750 225 / 225 Laboratory Results 07/13/20 05:35: WBC 9.7, RBC 4.48 L, Hgb 13.3, Hct 40.9, MCV 91.3, MCH 29.7, MCHC 32.5, RDW Std Deviation 52.9 H, RDW Coeff of David 15.8 H, Plt Count 229, MPV 9.5, Immature Gran % (Auto) 0.700, Neut % (Auto) 91.2 H, Lymph % (Auto) 4.0 L, Garden % (Auto) 4.0, Eos % (Auto) 0.0, Baso % (Auto) 0.1, Absolute Neuts (auto) 8.8 H, Absolute Lymphs (auto) 0.39 L, Nucleated RBC % 0, Differential Comment SCANNED 07/13/20 05:35: Sodium 136, Potassium 3.7, Chloride 105, Carbon Dioxide 23.0, Anion Gap 8, BUN 25 H, Creatinine 1.27, Estim Creat Clear Calc 48.71, Est GFR (MDRD) Af Amer 71, Est GFR (MDRD) Non-Af 58 L, BUN/Creatinine Ratio 19.7, Glucose 226 H, Calcium 8.4 L, Magnesium 2.0, Total Bilirubin 0.50, AST 17, ALT 17, Alkaline Phosphatase 53, Total Protein 6.3 L, Albumin 2.4 L, Globulin 3.9, Albumin/Globulin Ratio 0.6 L Current Medications Acetaminophen (Acetaminophen 325 Mg Tablet) 650 mg PO Q6H PRN PRN PRN Reason: Pain Score 1-10/Temp > 100.7 F Albuterol Sulfate (Albuterol 2.5 Mg/3 Ml Vial.Neb.) 2.5 mg INHALATION Q2H PRN PRN PRN Reason: Shortness of Breath/Wheezing Allopurinol (Allopurinol 100 Mg Tablet) 100 mg PO DAILYCM [facility] Last Admin: 07/13/20 09:31 Dose: 100 mg Documented by: Aspirin (Aspirin 81 Mg Tab.Chew) 81 mg PO DAILY@0800 [facility] Last Admin: 07/13/20 09:31 Dose: 81 mg Documented by: Atorvastatin Calcium (Atorvastatin Calcium 40 Mg Tablet) 40 mg PO QHS [facility] Last Admin: 07/12/20 21:45 Dose: 40 mg Documented by: Calamine/Phenol (Menthol/Lanolin/Calamine/Znox 113 Gm Tube) 1 applic TOPICAL TID [facility]; Protocol Last Admin: 07/13/20 03:53 Dose: 1 applicatio Documented by: Carvedilol (Carvedilol 6.25 Mg Tablet) 6.25 mg PO BID [facility] Last Admin: 07/13/20 09:30 Dose: 6.25 mg Documented by: Clopidogrel Bisulfate (Clopidogrel Bisulfate 75 Mg Tablet) 75 mg PO DAILY [facility] Last Admin: 07/13/20 09:30 Dose: 75 mg Documented by: Enoxaparin Sodium (Enoxaparin 40 Mg/0.4 Ml Syringe) 40 mg SC DAILY [facility] Last Admin: 07/13/20 09:32 Dose: 40 mg Documented by: Famotidine (Famotidine 20 Mg Tablet) 20 mg PO DAILY [facility] Last Admin: 07/13/20 09:30 Dose: 20 mg Documented by: Gabapentin (Gabapentin 300 Mg Capsule) 300 mg PO BID PRN PRN PRN Reason: neuropathy Glyburide (Glyburide 2.5 Mg Tablet) 2.5 mg PO DAILY@0800 [facility] Last Admin: 07/13/20 09:30 Dose: 2.5 mg Documented by: Guaifenesin (Guaifenesin 10 Ml Udc (200mg/10ml)) 20 ml PO Q4H PRN PRN PRN Reason: COUGH Sodium Chloride () 1,000 mls @ 75 mls/hr IV .[id number] [facility] Last Admin: 07/13/20 01:37 Dose: 75 mls/hr Documented by: Losartan Potassium (Losartan Potassium 50 Mg Tablet) 50 mg PO DAILY [facility] Last Admin: 07/13/20 09:32 Dose: 50 mg Documented by: Nitroglycerin (Nitroglycerin (Inpatient Use) 0.4 Mg Tab.Subl) 0.4 mg SUBLINGUAL Q5M PRN PRN Reason: CARDIAC/CHEST PAIN Oxycodone HCl (Oxycodone 5 Mg Tablet) 10 mg PO Q4H PRN PRN PRN Reason: Pain Score 6-10 Oxycodone HCl (Oxycodone 5 Mg Tablet) 5 mg PO Q4H PRN PRN PRN Reason: Pain Score 4-5 Prednisone (Prednisone 20 Mg Tablet) 40 mg PO DAILY@0800 [facility] Last Admin: 07/13/20 09:31 Dose: 40 mg Documented by: Prochlorperazine Edisylate (Prochlorperazine 10 Mg/2 Ml Vial) 5 mg IV Q4H PRN PRN PRN Reason: Breakthrough nausea/vomiting Senna/Docusate Sodium (Senna/Docusate Sodium 1 Tablet) 2 tablet PO BID PRN PRN PRN Reason: Constipation Sodium Chloride (0.9% Saline Lock 10 Ml Syringe) 10 - 40 ml IV UD PRN PRN Reason: SALINE FLUSH Tamsulosin HCl (Tamsulosin Hcl 0.4 Mg Capsule) 0.4 mg PO DAILY@1730 [facility] Last Admin: 07/13/20 09:32 Dose: 0.4 mg Documented by: STROKE Vital Signs/Narrative: Vital Signs Temp Pulse Resp BP Pulse Ox 07/13/20 12:00 88 07/13/20 09:45 98.6 F 91 18 135/71 H 95 Medical Necessity - Tobacco Use Smoking Status: Former smoker Tobacco Use: Non-smoker Assessment/Plan All Active Problems Inability to ambulate due to multiple joints (Acute) Gouty arthritis of both ankles (Acute) Status post revision of total replacement of left knee (Acute) Status post total left knee replacement (Acute) The patient is a 75 year old M with history of gout with recent flareup for which he took a course of prednisone and completed 2 weeks ago came to ED with swelling of multiple joints for 2 to 3 days. 1. Acute gouty exacerbation of chronic gouty arthritis: Patient has tophi on the left great toe. Started on Solu-Medrol 1 more dose and then transition to prednisone from tomorrow a.m. IV fluid normal saline 75 mill per hour for mild dehydration and prevent contrast-induced nephropathy. Continue allopurinol. PT and OT. Patient has mild relief after Solu-Medrol 125 mg given in the ER. Pain control. 07/13: Pain and swelling of the joints are better. Solu-Medrol changed to the prednisone. Discontinue IV fluid after the completion of the current bag. PT and OT to continue. grievance manager consult for discharge plan. 2. Coronary artery disease with recent PCI: Continue home medication aspirin, Plavix, carvedilol, losartan and atorvastatin. Patient does not have chest pain or shortness of breath. 07/13: Right radial artery access site no hematoma, thrill or bruit. Right arm and forearm along great vein course feels soft and clinically no signs of DVT in the right upper extremity. 3. Paroxysmal A. fib on Xarelto 4. Prediabetes, glucose is controlled. Patient on glimepiride 2.5 mg daily. 5. BPH on Flomax. 6. Dyslipidemia 7.VTE prophylaxis: On Xarelto. Discharge plan: Possible home with home health care or SNF depending on PT recommendation tomorrow a.m. Inpatient E&M: 72224 Subs Hosp L2
[2020-07-13 15:45] VITALS: BP 148/63; PULSE 66; RESP 18; TEMP 36.7; O2SAT 94
[2020-07-13 21:58] VITALS: BP 140/52; PULSE 62; RESP 20; TEMP 36.6; O2SAT 94
[2020-07-13] MEDS: Atorvastatin Calcium 40 MG Tablet PO (22:00)
[2020-07-14 03:15] VITALS: BP 136/60; PULSE 58; RESP 20; TEMP 36.5; O2SAT 96
[2020-07-14] MEDS: Menthol/Lanolin/Calamine/Znox 113 GM Tube 1 APPLIC TOPICAL (06:15)
--- NOTE | 2020-07-14 08:04 | NURSING ---
Spoke with Daughter Wendi regarding plan for DC. Daughter wants to make sure patient can be fully independent if the plan is to DC home as he has no help within the home. Family would prefer rehab until he is able to function independently. Will be in touch with Social Work.
[2020-07-14 08:08] VITALS: O2SAT 97
--- NOTE | 2020-07-14 08:45 | CASEMGMT ---
Social Work Note SW received message from Janay stating she will provide referral to [facility] physician. Janay states RU and TCU does have a bed available. YOUNG waiting for call back from Janay. YOUNG received message from pt's daughter Wendi stating she would like to address plan of care for pt and to get clarification if pt is going to RU/TCU or what the family will need to arrange for pt to return home. YOUNG will await determination from Janay in RU/TCU. Plan: JULIANA Olson DOOR CAPTAIN, REMNANT SORTER
[2020-07-14 09:15] VITALS: BP 114/59; PULSE 72; RESP 18; TEMP 36.4; O2SAT 96
[2020-07-14] MEDS: predniSONE 20 MG Tablet 40 MG PO (09:49)
[2020-07-14] MEDS: Carvedilol 6.25 MG Tablet PO (09:49)
[2020-07-14] MEDS: Enoxaparin 40 MG/0.4 ML Syringe SC (09:50)
[2020-07-14] MEDS: Aspirin 81 MG TAB.CHEW PO (09:50)
[2020-07-14] MEDS: Losartan Potassium 50 MG Tablet PO (09:50)
[2020-07-14] MEDS: Allopurinol 100 MG Tablet PO (09:50)
[2020-07-14] MEDS: glyBURIDE 2.5 MG Tablet PO (09:50)
[2020-07-14] MEDS: Clopidogrel Bisulfate 75 MG Tablet PO (09:50)
[2020-07-14] MEDS: Famotidine 20 MG Tablet PO (10:02)
--- NOTE | 2020-07-14 12:30 | CASEMGMT ---
Social Work Note YOUNG received two messages from pt's daughter Wendi requesting call back to discuss discharge plans. Per previous notes, Wendi wanted pt to admit to either [facility] TCU or [facility] RU. Wendi states she is the Director of Therapeutic Services at [place]. Pt SW updated that pt is refusing placement. PT/OT states if pt has two rails at home and/or ramp pt would be able to get into home and fine with pt discharging home with [facility]HC. SW in to speak with pt. SW introduced self and role at [facility]. Pt is alert and orientated. Pt states he was told that he could discharge home with [facility]HC. Pt states he prefers to discharge home with HHC. Pt states he doesn't want to discharge to RU or TCU due to COVID. SW updated pt that RU and TCU doesn't take pt's with COVID but did tell pt that some staff has tested positive for COVID. Pt states that he lives with his in a one story home. Pt states his currently has C-Diff and unable to assist pt. Pt states he has spent he last 6 of 7 days in the hospital. Pt states he had surgery last week at [place]. Pt states [place] never offered additional therapy or RU at their unit or [facility] and pt was just discharged home. Pt states he never refused, they never offered it. Pt states he feels like he did well with therapy and wishes to discharge home. Pt states he had some difficult with the steps has he couldn't get his left leg up the steps but states he will be working with PT/OT after lunch and requested quad cane for steps as he utilizes quad cane at home. Pt states he also has walker, wheelchair, electric cart, regular cane at home. SW updated pt that his daughter Wendi had called this worker twice wanting update. SW updated pt that it seems Wendi wants pt to go to either RU or TCU. Pt confirms his daughter Wendi is getting involved and it is pissing him off. Pt states she lives in [place]. Pt states that he has another daughter Linda Chávez who lives with her behind pt. 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 Pt states he reached out to [facility] Aging and pt does get Meals on Wheels delivered to his home. Pt again states he wishes to discharge home with [facility]. Pt states he prefers [facility]. Pt states he only needs PT/OT. YOUNG offered for RN to come in through [facility] and pt denied. Pt again states he only needs PT/OT. Pt states that he knows [facility] used to have ramps to rent and inquired if they will rent one to him. Pt states he has a neighbor boy who would be able to build one for him but that will take a while and he needs one right now so he is able to discharge home. YOUNG updated pt that [facility] is no longer in business and that it is [employer] now. Pt states he knows that and still inquired if they will provide him with a ramp. SW informed pt that this worker didn't know but would ask around. Pt states understanding. SW asked pt if this worker could provide courtesy call back to Wendi as she had called this worker twice. Pt states you can call her and tell her you spoke with me and I am going home with [facility]. Pt again denied RU and SNF. YOUNG updated RN CM on request for [facility] for PT/OT. SW also inquired about ramp rentals. YOUNG placed a call to pt's daughter Wendi and updated Wendi that this worker spoke with pt and pt is wanting to discharge home with [facility]. Wendi had many questions/concerns with pt returning home. YOUNG informed pt that pt is alert and orientated x3, able to make own decisions. Wendi asked what if pt gets home and pt not able to get into home again, is she just supposed to call the squad again. Wendi states pt is causing stress to the rest of the family. YOUNG informed pt that perhaps pt needs to continue to fail at home before realizing pt needs more assistance. Wendi asked to speak with PT/OT and to speak with physician. YOUNG updated Wendi that this worker will ask pt if he gives permission for Wendi to speak to PT/OT and physician. YOUNG updated Wendi that pt could also get private duty aides in the home and informed Wendi that if pt gets home and wants an RN to be added, he can speak to C and PCP. SW back in to speak with pt. Pt down with PT/OT. YOUNG updated pt that Wendi is requesting to speak with PT/OT. Pt gave permission for PT/OT to update. YOUNG attempted to call Wendi, no answer, voicemail left. YOUNG then received call from Wendi. YOUNG provided PT/OT with phone. Wendi then on speaker phone and spoke with Pt, PT/OT, and this worker. PT again reiterated that pt will need either two railings or ramp to safely enter the home. Pt asked for test company number as he will be calling himself to inquire about ramp. RUDOLPH RAYMOND provided pt with number. YOUNG then updated physician that Wendi is requesting call from physician. YOUNG back in to speak with pt. Pt updated this worker that he called test company/[employer] and they have 6ft and 8ft ramp to rent and the 8ft ramp will cost $50. Pt states he is waiting for call back to determine if test company/[employer] can assemble ramp today. Plan: Home with [facility]. Pt is trying to get ramp assemble today. Sherrell Olson CYCLE CONSULTANT, SKIVER HAND
--- NOTE | 2020-07-14 12:55 | CASEMGMT ---
RUDOLPH RAYMOND updated by YOUNG that patient would like [facility] at discharge. RN CM sent referral to [facility] and they are able to accept the patient. RN MANDI updated YOUNG Olson regarding acceptance with [facility]. RUDOLPH RAYMOND to send discharge instructions when available.
--- NOTE | 2020-07-14 14:17 | PCM.DC ---
- Discharge Diagnoses Current Active Problems: Current Active and Chronic Problems Gout (Chronic) Inability to ambulate due to multiple joints (Acute) Gouty arthritis of both ankles (Acute) Pre-diabetes (Chronic) CAD (coronary artery disease) (Chronic) Ankylosing spondylitis (Chronic) Hypertension (Chronic) Sleep apnea in adult (Chronic) Obesity (BMI 30-39.9) (Chronic) Status post revision of total replacement of left knee (Acute) Dr Anderson 08/18/15kevin Status post total left knee replacement (Acute) Osteoarthritis (Chronic) You will use the following diet at home:: Calorie/Carbohydrate Controlled (specify 1200, 1400, etc) - 2000 merna., Cardiac Your food should be the consistency of: Regular Discharge Activity: Return to Normal Activity Weight Bearing Status: Weight bearing as tolerated Call your doctor if you observe: Fever of 101 or Higher, Shortness of breath, Dizziness, Fainting spells, Chest pain, Increased palpitations (irregular heartbeat) Additional Instructions: Take prednisone 40 mg daily for 5 days then stop. Allergies/Adverse Reactions: Allergies misoprostol [From Cytotec] Allergy (Verified 07/12/20 09:11) Hives Penicillins Allergy (Verified 07/12/20 09:11) Hives Sulfa (Sulfonamide Antibiotics) Allergy (Verified 07/12/20 09:11) Hives artificial sweetners Allergy (Uncoded 07/12/20 09:11) Diarrhea Medications to take at Discharge Tamsulosin HCl [Flomax] 0.4 mg PO DAILY 01/21/17 Gabapentin [Neurontin] 300 mg PO BID PRN PRN #60 tab 02/10/17 Allopurinol 100 mg PO DAILY 07/12/20 Aspirin [Aspirin, Baby] 81 mg PO DAILY@0800 07/12/20 Carvedilol [Coreg (Beta Yanira)] 6.25 mg PO BID 07/12/20 Clopidogrel Bisulfate [Plavix] 75 mg PO DAILY 07/12/20 Losartan Potassium [Cozaar] 50 mg PO DAILY 07/12/20 glyBURIDE [Micronase] 2.5 mg PO DAILY@0800 07/12/20 predniSONE tablet 40 mg PO DAILY@0800 #10 tab 07/14/20 The following prescriptions were given: predniSONE tablet 40 mg PO DAILY@0800 #10 tab Transmission Status: Pending to [facility]/pharmacy #[id number] Primary Care Physician: Angel Fields MD [Primary Care Provider] - Please follow up with your Primary Care Physician in: 1 week. Test Results: Test results from this visit will be discussed in further detail at your follow-up appointment, if applicable.
--- NOTE | 2020-07-14 14:19 | DS.PCM_ITS ---
Discharge Date and Diagnosis Date of Admission: 07/12/20 Date of Discharge: 07/14/20 - Primary Discharge Diagnosis Acute Problems: Active Problems #1 acute gouty arthritis exacerbation of the left big toe. #2 CAD status post recent PCI, stable. - Secondary Discharge Diagnosis Chronic Problems: Chronic Problems Gout (Chronic) Pre-diabetes (Chronic) CAD (coronary artery disease) (Chronic) Ankylosing spondylitis (Chronic) Hypertension (Chronic) Sleep apnea in adult (Chronic) Obesity (BMI 30-39.9) (Chronic) Osteoarthritis (Chronic) Hospital Course and Treatment Imaging Results: Clinical Impression(s) from Imaging Studies Chest X-Ray 07/12/20 10:03 IMPRESSION: No acute pulmonary process Electronically Signed: Tad Snyder MD at 11:29 EST , Service support , Operations: None Procedures: None Summary of Care Provided: Patient seen and examined on the day of discharge and the patient was stable to be discharged home with home health. Left foot and left big toe pain improved and patient was able to ambulate. He did fairly well with the physical therapist and he was able to walk for around 100 feet. His vital signs were stable. The patient is a 75 year old M presented to the emergency room because of swelling and pain of multiple joints including left foot and left big toe and he was found to have acute gouty arthritis exacerbation. Patient was treated with IV Solu-Medrol x1 and then he was started on p.o. prednisone. He was treated with IV fluids as well and he was continued on allopurinol. Patient had recent PCI for CAD at outside facility and during this hospital stay, this was stable and he has no chest pain or shortness of breath. He was continued on his home medications including aspirin, Plavix, Coreg, losartan and statins. His vital signs were stable. With IV steroids and p.o. prednisone, joint pain improved and patient was able to start ambulating. He was evaluated by PT OT and he was able to ambulate, was able to take couple of steps. Patient was given the option to go home with home health or go to jail facility for placement. The patient himself thinks that he is safe to go back home and he mentioned that his home was modified and he would be able to manage and take care of himself. His daughter called and was worried and concerned about him going back home as her mother is sick at this time. I informed the patient's daughter that her father wants to go home with home health. I went back to the patient himself and I offered him to go to jail facility but he insisted that he can go home with home health and his home is modified and he can handle the situation. Patient discharged home with home health in a stable condition, discharged on prednisone 40 mg p.o. daily for 5 days to complete total of 7 days of treatment, continued on his other previous home medications without any changes, recommended follow-up with PCP in 1 week. - Physical Exam Vitals/I&O's: Vital Signs Temp Pulse Resp BP Pulse Ox 97.5 F L 72 18 114/59 L 96 07/14/20 09:15 07/14/20 09:15 07/14/20 09:15 07/14/20 09:15 07/14/20 09:15 Oxygen Delivery Method Room Air Weight: 279 lb 1.683 oz Body Mass Index (BMI) 41.2 Finger Stick Blood Glucose 91 Intake and Output for Last 24 Hours 07/12/20 07/13/20 07/14/20 23:59 23:59 23:59 Intake Total 300 / 500 3807.5 / 3807.5 710 / 710 Output Total 600 / 1250 1950 / 1950 400 / 400 Balance -300 / -750 1857.5 / 1857.5 310 / 310 General: Alert, Oriented x3, Cooperative, No apparent distress HEENT: Atraumatic, PERRLA, EOMI, Normocephalic Oral: Moist Mucosa, No Gingival or Mucosal Lesions/ Ulcerations Neck: Supple, No JVD, Negative Carotid Bruits, Trachea Midline, Thyroid Normal Size and Texture Lungs: Clear to auscultation, No rhonchi, No wheeze, No rales, Diminished Cardiovascular: Regular rate, Regular Rhythm, Normal S1, Normal S2, PMI Normal Abdomen: Bowel Sounds Present, Soft, Non Tender, Non-Distended, No Hepato- splenomegaly, Obese Extremities: No clubbing, No cyanosis, Edema Skin: No rashes, No breakdown Lymphatic: No Cervical, Supraclavicular, or Inguinal Adenopathy Neurological: Cranial nerves II-XII grossly intact, Neuro grossly intact Psych/Mental Status: Normal Affect, Appropriate Current Medications Acetaminophen (Acetaminophen 325 Mg Tablet) 650 mg PO Q6H PRN PRN PRN Reason: Pain Score 1-10/Temp > 100.7 F Albuterol Sulfate (Albuterol 2.5 Mg/3 Ml Vial.Neb.) 2.5 mg INHALATION Q2H PRN PRN PRN Reason: Shortness of Breath/Wheezing Allopurinol (Allopurinol 100 Mg Tablet) 100 mg PO DAILYCM [facility] Last Admin: 07/14/20 09:50 Dose: 100 mg Documented by: Aspirin (Aspirin 81 Mg Tab.Chew) 81 mg PO DAILY@0800 [facility] Last Admin: 07/14/20 09:50 Dose: 81 mg Documented by: Atorvastatin Calcium (Atorvastatin Calcium 40 Mg Tablet) 40 mg PO QHS [facility] Last Admin: 07/13/20 22:00 Dose: 40 mg Documented by: Calamine/Phenol (Menthol/Lanolin/Calamine/Znox 113 Gm Tube) 1 applic TOPICAL TID [facility]; Protocol Last Admin: 07/14/20 06:15 Dose: 1 applicatio Documented by: Carvedilol (Carvedilol 6.25 Mg Tablet) 6.25 mg PO BID [facility] Last Admin: 07/14/20 09:49 Dose: 6.25 mg Documented by: Clopidogrel Bisulfate (Clopidogrel Bisulfate 75 Mg Tablet) 75 mg PO DAILY [facility] Last Admin: 07/14/20 09:50 Dose: 75 mg Documented by: Enoxaparin Sodium (Enoxaparin 40 Mg/0.4 Ml Syringe) 40 mg SC DAILY [facility] Last Admin: 07/14/20 09:50 Dose: 40 mg Documented by: Famotidine (Famotidine 20 Mg Tablet) 20 mg PO DAILY [facility] Last Admin: 07/14/20 10:02 Dose: 20 mg Documented by: Gabapentin (Gabapentin 300 Mg Capsule) 300 mg PO BID PRN PRN PRN Reason: neuropathy Glyburide (Glyburide 2.5 Mg Tablet) 2.5 mg PO DAILY@0800 [facility] Last Admin: 07/14/20 09:50 Dose: 2.5 mg Documented by: Guaifenesin (Guaifenesin 10 Ml Udc (200mg/10ml)) 20 ml PO Q4H PRN PRN PRN Reason: COUGH Losartan Potassium (Losartan Potassium 50 Mg Tablet) 50 mg PO DAILY [facility] Last Admin: 07/14/20 09:50 Dose: 50 mg Documented by: Nitroglycerin (Nitroglycerin (Inpatient Use) 0.4 Mg Tab.Subl) 0.4 mg SUBLINGUAL Q5M PRN PRN Reason: CARDIAC/CHEST PAIN Oxycodone HCl (Oxycodone 5 Mg Tablet) 10 mg PO Q4H PRN PRN PRN Reason: Pain Score 6-10 Oxycodone HCl (Oxycodone 5 Mg Tablet) 5 mg PO Q4H PRN PRN PRN Reason: Pain Score 4-5 Prednisone (Prednisone 20 Mg Tablet) 40 mg PO DAILY@0800 [facility] Last Admin: 07/14/20 09:49 Dose: 40 mg Documented by: Prochlorperazine Edisylate (Prochlorperazine 10 Mg/2 Ml Vial) 5 mg IV Q4H PRN PRN PRN Reason: Breakthrough nausea/vomiting Senna/Docusate Sodium (Senna/Docusate Sodium 1 Tablet) 2 tablet PO BID PRN PRN PRN Reason: Constipation Sodium Chloride (0.9% Saline Lock 10 Ml Syringe) 10 - 40 ml IV UD PRN PRN Reason: SALINE FLUSH Tamsulosin HCl (Tamsulosin Hcl 0.4 Mg Capsule) 0.4 mg PO DAILY@1730 [facility] Last Admin: 07/13/20 09:32 Dose: 0.4 mg Documented by: Discharge Activity: Return to Normal Activity Weight Bearing Status: Weight bearing as tolerated Call your doctor if you observe: Fever of 101 or Higher, Shortness of breath, Dizziness, Fainting spells, Chest pain, Increased palpitations (irregular heartbeat) Home Medications: Medications to take at Discharge Tamsulosin HCl [Flomax] 0.4 mg PO DAILY 01/21/17 Gabapentin [Neurontin] 300 mg PO BID PRN PRN #60 tab 02/10/17 Allopurinol 100 mg PO DAILY 07/12/20 Aspirin [Aspirin, Baby] 81 mg PO DAILY@0800 07/12/20 Carvedilol [Coreg (Beta Yanira)] 6.25 mg PO BID 07/12/20 Clopidogrel Bisulfate [Plavix] 75 mg PO DAILY 07/12/20 Losartan Potassium [Cozaar] 50 mg PO DAILY 07/12/20 glyBURIDE [Micronase] 2.5 mg PO DAILY@0800 07/12/20 predniSONE tablet 40 mg PO DAILY@0800 #10 tab 07/14/20 Following Prescriptions Were Given to Patient: predniSONE tablet 40 mg PO DAILY@0800 #10 tab Transmission Status: Received by [facility]/pharmacy #[id number] Primary Care Physician: Angel Fields MD [Primary Care Provider] - Please follow up with your Primary Care Physician in: 1 week. Disposition: Home with Home Health Minutes spent on discharge:: 27 Patient Condition:: Stable Medical Necessity - Tobacco Use Smoking Status: Former smoker Tobacco Use: Non-smoker Meaningful Use Info Meaningful Use Diagnoses (Choose all that apply): None applicable Inpatient E&M: 11986 Disch Hosp
--- NOTE | 2020-07-14 15:15 | CASEMGMT ---
Addendum entered by Sherrell Olson 07/14/20 18:56: YOUNG updated Janay in RU/TCU that pt discharged home. Original Note: Social Work Note SW updated that pt now needs a ride home. SW in to speak with pt. Pt confirms that he spoke with [employer] again and they are getting pt's ramp put in right now. Pt confirms he needs ride home. SW updated pt that this worker could arrange wheelchair van through [facility] but it will be private pay as his insurance won't cover it. Pt asked if a ambulance transportation would be less expensive and SW explained that pt doesn't meet medical necessity for cot transport so that will be more expensive. Pt states [facility] transported him and asked if they will transport pt home. SW informed pt that typically fire departments only provide emergency transportation not transportation home. Pt still requests number and states he will call. SW provided number. SW then updated again that pt will need wheelchair van transport arranged through [facility] and requests transportation be arranged in 45 minutes. SW accessed trip assist, arranged transportation via wheelchair van for 4:00pm. Transportation form completed and given to clerical secretary. RN updated on transportation time. YOUNG updated pt on transportation time and that HHC has been arranged through [facility] for pt. YOUNG updated pt that this worker will call [facility] one time just to confirm plans. Pt states understanding. YOUNG placed another call to Wendi. YOUNG updated Wendi that per pt, ramp has been delivered and assembled and pt still adamant about returning home. Wendi asked for additional resources be emailed to her. YOUNG emailed Private Duty list and additional HHC list to Wendi. [facility]i thanked this worker. Plan: Home with [facility] for PT/OT. [facility] transporting pt via wheelchair at 4:00pm Sherrell Olson MOLECULAR PATHOLOGIST, SOCIAL WELFARE ADMINISTRATOR
[2020-07-14 15:32] VITALS: BP 146/70; PULSE 68; RESP 18; TEMP 36.3; O2SAT 97
--- NOTE | 2020-07-15 16:09 | CASEMGMT ---
RUDOLPH RAYMOND Discharge Follow-up Phone Call: JAIDA: Flor Strata: 3 Call Date: 07/15/20 Discharge Date: 07/14/20 Time of Call: 1610 Duration: 5 min Admitting Diagnosis: Gout exacerbation RUDOLPH RAYMOND completed follow-up phone call after recent hospitalization. Patient states he is doing well and had no questions or concerns at this time. Patient states he was able to fill prescription without any issues. Patient states he call PCP and spoke with nurse regarding hospitalization. [facility] has been in contact with patient. Patient had no further questions or concerns at this time. Patient states he was very thankful to [facility] for great care.
== END 2020-07-14 16:41 | disposition home or self-care (01) | DRG 554 ==
LOC: ED 10:32 → MS3 14:59
PROVIDERS: Admitting Provider Internal Medicine; Emergency Provider Emergency Medicine; PCP Internal Medicine Infectious Disease; Visit Provider Hospitalist
DX: M1A.0721 Idiopathic chronic gout, left ankle and foot, with tophus (tophi) (principal); Z68.41 Body mass index [BMI] 40.0-44.9, adult; M1A.0710 Idiopathic chronic gout, right ankle and foot, without tophus (tophi); I25.10 Atherosclerotic heart disease of native coronary artery without angina pectoris; R73.03 Prediabetes; M45.9 Ankylosing spondylitis of unspecified sites in spine; I48.0 Paroxysmal atrial fibrillation; I10 Essential (primary) hypertension; E78.5 Hyperlipidemia, unspecified; E66.9 Obesity, unspecified; M19.90 Unspecified osteoarthritis, unspecified site; N40.0 Benign prostatic hyperplasia without lower urinary tract symptoms; G47.30 Sleep apnea, unspecified; E86.0 Dehydration; Z98.61 Coronary angioplasty status; Z96.652 Presence of left artificial knee joint; Z79.01 Long term (current) use of anticoagulants; Z79.02 Long term (current) use of antithrombotics/antiplatelets; Z79.82 Long term (current) use of aspirin; Z79.899 Other long term (current) drug therapy; Z87.891 Personal history of nicotine dependence
CPT/HCPCS: 36415; 71045; 80048; 80053; 81001; 83735; 84550; 85025; 93005; 97110; 97116; 97162; 97166; 97530; 97535; 99285; J7030; A4216

== ENCOUNTER 2020-09-23 11:28 | Observation (INO) | payer MEDICARE, SELFPAY ==
[2020-07-12 13:15] VITALS: BMI 41.2
[2020-09-23 11:30] VITALS: TEMP 36.3; BMI 42.3
[2020-09-23 11:37] VITALS: BP 195/87; PULSE 63; RESP 16; O2SAT 97
--- NOTE | 2020-09-23 11:45 | CT_ITS ---
STUDY: CT BRAIN WITHOUT CONTRAST REASON FOR EXAM: Male, 75 years old. Injury, fell today. Hx hypertension. Patient very kyphotic. RADIATION DOSAGE (If Supplied By Facility): CTDIvol = ( 35.03 ) mGy, DLP = ( 619.84 ) mGycm TECHNIQUE: Transaxial CT imaging of the brain was performed without administration of intravenous contrast material. Individualized dose optimization techniques were used for this CT. COMPARISON: No relevant priors. FINDINGS: Normal soft tissue structures. Normal calvarium. There is mild cerebral atrophy with widening of the extra-axial spaces and ventricular dilatation. Normal white matter tracts of the cerebral hemispheres. Normal basal ganglia and thalami. Normal brainstem. Normal cerebellum. There is no intracranial hemorrhage. There are no findings of an acute ischemic infarction. Atherosclerotic calcification of the cavernous portions of the internal carotid arteries bilaterally as well as the vertebral arteries. Normal visualized paranasal sinuses. CT/Brain/Head without Contrast IMPRESSION: Chronic involutional changes of the brain. Electronically Signed: Merrick Brand MD at 13:16 EST , Service support ,
--- NOTE | 2020-09-23 11:46 | EKG12_ITS ---
Test Reason : FALL Blood Pressure : / mmHG Vent. Rate : 069 BPM Atrial Rate : 069 BPM P-R Int : 274 ms QRS Dur : 118 ms QT Int : 404 ms P-R-T Axes : 068 054 043 degrees QTc Int : 432 ms Sinus rhythm with 1st degree A-V block Incomplete left bundle branch block Borderline ECG Confirmed by JEWELL MADSEN, DEIRDRE ([id number]), graphic editor KIP WISE ([id number]) on 09/25/2020 1:47:30 PM Referred By: DAV Confirmed By:DEIRDRE CORCORAN MD
--- NOTE | 2020-09-23 11:47 | ED.VIS.GEN ---
History of Present Illness Chief Complaint: Fall Informant: Patient Onset: Weeks - 1 Context: Sudden Onset - x2 Quality: ache Location: Left wrist, head, left hip Current Severity: Mild Maximum Severity: Moderate Worsened by: movement Relieved by: remaining still Narrative: Patient presents for 2 different falls. One occurred a week ago, he states he was in his bathroom and he felt like his left hip gave out on him causing him to fall into the shower door and against the wall. He denies having any major injury but thinks he fell against his left forearm which has some bruising but he states it did not bother him until several days ago, when he started having distal left forearm/wrist pain. 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 He usually does not have issues with his left wrist which is now a bit swollen and as above, painful. This morning he fell again, due to his left hip giving out again. He states he has not had issues with his left hip before 1 week ago. He denies any systemic symptoms, he states he hit his head this morning but did not lose consciousness, and he thinks he fell against his left hip but was able to stand for EMS without left hip pain prior to arrival. He has chronic neck stiffness that is unchanged. He denies any systemic symptoms or illnesses recently, but then states that he felt weak when he stood up and may need to be admitted for therapy. Patient denies having had COVID-19 or contact with anyone with the illness lately, nor does he have any of the symptoms. - Past Medical History (1) Ankylosing spondylitis Status: Chronic (2) CAD (coronary artery disease) Status: Chronic (3) Gout Status: Chronic (4) Hypertension Status: Chronic (5) Osteoarthritis Status: Chronic (6) Pre-diabetes Status: Chronic (7) Sleep apnea in adult Status: Chronic Past Medical History - Allergies and Home Meds Allergies/Adverse Reactions: Allergies acetaminophen [From Percocet] Allergy (Verified 09/23/20 11:29) PT UNSURE OF REACTION misoprostol [From Cytotec] Allergy (Verified 09/23/20 11:29) Hives oxycodone [From Percocet] Allergy (Verified 09/23/20 11:29) PT UNSURE OF REACTION Penicillins Allergy (Verified 02/16/21 11:29) Hives Sulfa (Sulfonamide Antibiotics) Allergy (Verified 09/23/20 11:29) Hives artificial sweetners Allergy (Uncoded 09/23/20 11:29) Diarrhea Primary Care Physician: Angel Fields MD [Primary Care Provider] - Surgical History: coronary bypass surgery - 1993, herniorrhaphy, pacemaker implantation - with ICD, total knee arthroplasty - bilateral 2007, - - neck surgery 2001 Lives: Spouse/ Significant Other Smoking Status: Former smoker - Family History Maternal Family History: Reports: Heart Disease - age 82 Paternal Family History: Reports: No pertinent history - age 95 Sibling Family History: Reports: Cancer - brother age 58, prostate Offspring Family History: Reports: - - 4 daughters Review of Systems General: Reports: - - Mild dizziness since fall this morning. Denies: Chills, Fever, Sweats Eyes: Denies: Visual changes - bilaterally, Diplopia ENT: Denies: Bilateral ear pain, Rhinorrhea, Sore throat Cardiovascular: Denies: Chest pain, Palpitations Respiratory: Denies: Dyspnea, Cough, Dyspnea on exertion Gastrointestinal: Denies: Abdominal pain, Nausea, Vomiting, Diarrhea, Melena, Hematochezia Genitourinary: Denies: Dysuria, Hematuria, Frequency Musculoskeletal: Reports: Swelling - Right wrist, Extremity Pain. Denies: Back pain Skin: Denies: Rash, Wounds Neurological: Reports: Headache - Mild. Denies: Weakness, Numbness Physical Exam Vital Signs/Narrative: Vital Signs Temp Pulse Resp BP Pulse Ox 09/23/20 11:37 63 16 195/87 H 97 09/23/20 11:30 97.3 F L Inital Vital Signs reviewed: Yes General: Well nourished, Well developed, Obese, No Acute Distress Head: Normocephalic, Atraumatic Eyes: Perrl, EOMI ENT: Moist mucous membranes, No rhinorrhea Neck: Nontender, No lymphadenopathy Cardiovascular: Regular rate, Regular rhythm, No murmurs Respiratory: No distress, CTA bilaterally, Chest nontender Abdomen: Soft, Nontender, Nondistended, Normal bowel sounds Back: Nontender, Normal Inspection Extremities: No edema, Tenderness - Left distal ulna. Mild tenderness left greater trochanter of hip. No other areas of focal tenderness., - - Full range of motion all joints of all 4 extremities without significant difficulty including the left hip and left wrist and right wrist. No deformities. Skin: Normal color, No rash, Trauma - Mild ecchymosis and purpura likely due to injury left distal forearm. Also nontraumatic purpuric small areas right upper extremity. Neurological: Alert, Oriented x3, Cranial nerves II-XII grossly intact, Normal Strength, Normal Sensation Psychological: Normal affect, Normal Mood Diagnostic/Tx/Re-eval Impressions Brain CT 09/23/20 11:45 IMPRESSION: Chronic involutional changes of the brain. Electronically Signed: Merrick Brand MD at 13:16 EST , Service support , Chest X-Ray 09/23/20 12:33 IMPRESSION: Hyperinflation. The lungs are clear. Electronically Signed: Merrick Brand MD at 12:57 EST , Service support , Hip/Pelvis X-Ray 09/23/20 12:33 IMPRESSION: Degenerative changes. No fracture or dislocation is seen. Electronically Signed: Merrick Brand MD at 12:57 EST , Service support , Wrist X-Ray 09/23/20 12:33 IMPRESSION: I suspect a nondisplaced avulsion fracture of the triquetrum with overlying soft tissue swelling. Vascular calcification. Calcification of the triangular fibrocartilage in keeping with chondrocalcinosis. Electronically Signed: Merrick Brand MD at 12:55 EST , Service support , 09/23/20 11:45 Brain/Head without Contrast [CT] Stat 09/23/20 12:33 Chest 1 View (Portable) [RAD] Stat HIP, UNI W/ Pelvis 2-3 Views [RAD] Stat Wrist min 3 Views [RAD] Stat 09/23/20 13:30 Mucosa - Nose SARS-CoV-2 Antigen (Rapid) - Final Laboratory Results 09/23/20 09/23/20 09/23/20 11:50 12:20 12:20 WBC 8.7 RBC 4.50 L Hgb 13.7 Hct 42.0 MCV 93.3 MCH 30.4 MCHC 32.6 RDW Std Deviation 56.9 H RDW Coeff of David 16.7 H Plt Count 267 MPV 8.7 Immature Gran % (Auto) 1.500 H Neut % (Auto) 75.9 H Lymph % (Auto) 11.4 L [place] % (Auto) 8.6 Eos % (Auto) 2.3 Baso % (Auto) 0.3 Absolute Neuts (auto) 6.6 Absolute Lymphs (auto) 0.99 Nucleated RBC % 0 Sodium 138 Potassium 3.5 Chloride 106 Carbon Dioxide 27.0 Anion Gap 5 BUN 13 Creatinine 0.97 Estim Creat Clear Calc 63.78 Est GFR (MDRD) Af Amer 96 Est GFR (MDRD) Non-Af 80 BUN/Creatinine Ratio 13.4 Glucose 67 L Calcium 8.7 Troponin I 0.022 Urine Color Yellow Urine Clarity Sl. Cloudy Urine pH 7.0 Ur Specific [place] 1.010 Urine Protein Negative Urine Glucose (UA) Normal Urine Ketones Negative Urine Occult Blood Negative Urine Nitrite Negative Urine Bilirubin Negative Urine Urobilinogen Normal Ur Leukocyte Esterase Negative Urine RBC 0 SEEN Urine WBC 0 SEEN Ur Squamous Epith Cells 0 SEEN Urine Bacteria 0 SEEN Urine Mucus 0 SEEN - Rhythm Strip Rhythm Strip: Sinus Rhythm Rate: 69 Ectopy: None - EKG Initial EKG Interpretation: Sinus Rhythm, No Acute Injury Pattern, AV Block - 1st deg Prior: Unchanged - Medical Decision Making As above, patient appears to have a triquetrum fracture in the left wrist, which would explain his pain and swelling from apparent injury, but the rest of his work-up is negative. Patient said that he wanted to stay in the hospital for therapy because he was having trouble walking. He states he has a walker at home. I advised that if he did not have a medical reason to stay he may be billed for his visit and then he wanted to see if he could get up and go home. Nurses assisted him, he was not able to sit up on his own, and it took 2 nurses to even get him to do that. Upon trying to get him to stand, he was barely able, and then he was unable to take a step without to nurses holding him due to weakness and pain in his left hip. Given all of this, I do think he is at significant risk of recurrent fall/injury, and that admission is indicated for further evaluation. After discussing with hospitalist Dr. Sanchez, CT of the left hip ordered to further evaluate given his negative x-ray, which he will check upon admission/completion. ED Disposition - Plan for ED Patient: Disposition: Acute Care Hospital [facility] Diagnosis: Fracture of triquetrum of left wrist, Recurrent falls, Acute pain of left hip, Inability to ambulate due to left hip Referrals: Angel Fields MD [Primary Care Provider] -
[2020-09-23 12:05] LABS: Bacteria 0 SEEN /hpf (None Seen); Mucous, Urine 0 SEEN /hpf (<or=2+); Red Blood Cells-Urine 0 SEEN /hpf (0-5); Squamous Epithelial Cells - UA 0 SEEN /hpf (0-5); White Blood Cells 0 SEEN /hpf (0-5)
[2020-09-23 12:17] LABS: Color, Urine Yellow (Yellow); Glucose, Dipstick Normal (Normal); Ketone-Dipstick Negative (Negative); Leukocyte Esterase-Dipstick Negative /ul (Negative); Nitrite-Dipstick Negative (Negative); Occult Blood-Urine Negative /ul (Negative); Protein-Dipstick Negative (Negative); Urine Bilirubin Dipstick Negative (Negative); Urine Clarity Sl. Cloudy (Clear); Urine Urobilinogen Normal (Normal)
[2020-09-23 12:28] LABS: Absolute Lymphocyte Count 0.99 X10^3/uL (0.83-4.51); Absolute Neutrophil Count 6.6 X10^3/uL (2.0-7.7); Basophil# 0.03 X10^3/uL; Basophil% 0.3 % (0-1); Eosinophils% 2.3 % (0-5); Hemoglobin 13.7 g/dL (13.0-16.5); Lymphocyte # 0.99 X10^3/ul (4.0); Lymphocyte % 11.4 % (19-41); Mean Corp Hgb Conc 32.6 g/dL (32-36); Mean Corpuscular Hgb 30.4 pg (27.0-32.0); Mean Corpuscular Volume 93.3 fL (80-94); Mean Platelet Vol. 8.7 fl (6.2-12.0); Monocyte# 0.75 X10^3/uL; Monocyte% 8.6 % (0-10); NRBC Flagged by Analyzer 0 % (0-5); Neutrophil # 6.62 X10^3/uL (2.7-7.7); Neutrophil % 75.9 % (47-70); Platelet Count 267 K/mm3 (150-450); RBC Distribution Width CV 16.7 % (11.6-14.6); RBC Distribution Width SD 56.9 fl (35.1-43.9); White Blood Count 8.7 K/mm3 (4.4-11.0)
--- NOTE | 2020-09-23 12:33 | RAD_ITS ---
STUDY: X-RAY - PELVIS AND LEFT HIP REASON FOR EXAM: Male, 75 years old. PAIN, FALL TECHNIQUE: 3 views of the pelvis and hip. COMPARISON: None. FINDINGS: There is a non-specific bowel gas pattern. Normal visualized soft tissue structures. Normal bilateral iliac wings, sacroiliac joints and visualized sacrum. Normal bilateral superior and inferior pubic rami. There is narrowing with sclerosis of the pubic symphysis. Normal bilateral ischial tuberosities. Normal visualized femoral head. There is osteoarthritic spur formation of the acetabular rim. is severe articular joint space narrowing of the hip. Marked degree of osteoarthritis of the left hip joint as well with the spurs along the acetabular component of the right hip. RAD/HIP, UNI W/ Pelvis 2-3 Views IMPRESSION: Degenerative changes. No fracture or dislocation is seen. Electronically Signed: Merrick Brand MD at 12:57 EST , Service support ,
--- NOTE | 2020-09-23 12:33 | RAD_ITS ---
STUDY: X-RAY CHEST REASON FOR EXAM: Male, 75 years old. PAIN, FALL TECHNIQUE: Single AP portable view of the chest. COMPARISON: Comparison is made with prior study dated 07/12/2020. FINDINGS: EKG electrodes are seen. Hyperinflation. The lungs are clear. There is no demonstrated pleural abnormality. Sternal cerclage wires and vascular clips are present from a prior sternotomy and coronary artery bypass graft procedure (CABG). Normal mediastinum and jay. Normal visualized pulmonary arteries. There is atherosclerotic calcification of the aortic arch with tortuosity. There are diffuse degenerative changes of the visualized thoracic spine. There is degenerative osteoarthritis of the bilateral shoulders. There is no demonstrated abnormality of the visualized soft tissue structures of the upper abdomen. RAD/Chest 1 View (Portable) IMPRESSION: Hyperinflation. The lungs are clear. Electronically Signed: Merrick Brand MD at 12:57 EST , Service support ,
--- NOTE | 2020-09-23 12:33 | RAD_ITS ---
STUDY: X-RAY - LEFT WRIST REASON FOR EXAM: Male, 75 years old. PAIN, FALL TECHNIQUE: 3 view(s) of the wrist were obtained. COMPARISON: None. FINDINGS: Normal visualized distal radius and ulna. There is degenerative arthrosis of the radiocarpal articulation. Normal distal radioulnar articulation. I suspect a nondisplaced avulsion fracture of the triquetrum. Normal carpal articulations. Calcification of the triangular fibrocartilage in keeping with chondrocalcinosis. Normal carpometacarpal articulation of the thumb. Normal second through fifth carpometacarpal articulations. Normal visualized metacarpal bones. Vascular calcification. Dorsal soft tissue swelling. RAD/Wrist min 3 Views IMPRESSION: I suspect a nondisplaced avulsion fracture of the triquetrum with overlying soft tissue swelling. Vascular calcification. Calcification of the triangular fibrocartilage in keeping with chondrocalcinosis. Electronically Signed: Merrick Brand MD at 12:55 EST , Service support ,
[2020-09-23 12:45] LABS: Anion Gap 5 (5-15); BUN 13 mg/dL (7-18); BUN/Creat Ratio 13.4 RATIO (10-20); Calcium,Total 8.7 mg/dL (8.5-10.1); Chloride 106 mmol/L (98-107); Creatinine, Serum 0.97 mg/dL (0.70-1.30); EST Glomerular Filtration Rate 80 mL/min (>60); Est Glom Filt Rate - Afr Amer 96 mL/min (>60); Estimated Creatinine Clearance 63.78 ml/min; Glucose 67 mg/dL (74-106); Potassium 3.5 mmol/L (3.5-5.1); Sodium Level 138 mmol/L (136-145)
--- NOTE | 2020-09-23 14:47 | ED.RN ---
Placed splint onto Left wrist and patient states he does not want to wear it. He is aware not wearing it could result in worsening in the fracture and ortho would want one. He states he does not feel comfortable trying to use a walker with it and does not want the splint. Patient had difficulty getting from lying to sitting to standing position as he kept falling back when trying to sit up. Two nurses assisted to standing position but patient unstable. Only able to ambulate approximately 10 feet before needing to stand down due to hip pain and states his R foot is too heavy for him to be able to walk. Taken back to room and patient not able to stand from wheelchair to walker to get back into bed without two nurses helping to lift him. He was able to take two steps and pivot to sit in bed but not able to lift his legs and turn to lying position without assistance. Patient back to bed with the assistance of two nurses and requesting food. Given sandwich and beverages x 2 per his request and bed locked, low position with rails up. Aware waiting on hospitalist for eval for admit. Daughter, Wendi updated.
--- NOTE | 2020-09-23 15:23 | PCM.HP.STD ---
History of Present Illness Date of Admission: 09/23/20 Chief Complaint: Weakness and fall The patient is a 75 year old M with a PMH as below who presented from home with weakness and a fall. He says that he fell a week ago and then he fell again today. He says his first fall he was in the shower and felt like his left hip just gave out on him. He fell against his left side and had some right wrist pain which in the ER was found to have a nondisplaced triquetrum fracture. His x-ray of his hip was negative. He has some lateral left hip pain on palpation but most of his pain occurs when he puts weight on it. It took 2 nurses to be able to sit him up in bed and he was unable to stand up or walk. He did hit his head with his first fall about a week ago, CT of his brain was negative and is denying any type of neurological symptoms. He does have chronic neck stiffness from surgery. Past Medical History Past Medical History (Chronic Problems): Chronic Problems Gout (Chronic) Pre-diabetes (Chronic) CAD (coronary artery disease) (Chronic) Ankylosing spondylitis (Chronic) Hypertension (Chronic) Sleep apnea in adult (Chronic) Obesity (BMI 30-39.9) (Chronic) Osteoarthritis (Chronic) Allergies acetaminophen [From Percocet] Allergy (Verified 09/23/20 11:29) PT UNSURE OF REACTION misoprostol [From Cytotec] Allergy (Verified 09/23/20 11:29) Hives oxycodone [From Percocet] Allergy (Verified 09/23/20 11:29) PT UNSURE OF REACTION Penicillins Allergy (Verified 09/23/20 11:29) Hives Sulfa (Sulfonamide Antibiotics) Allergy (Verified 09/23/20 11:29) Hives artificial sweetners Allergy (Uncoded 09/23/20 11:29) Diarrhea Home Medications: Ambulatory Orders Medication Instructions Recorded Tamsulosin HCl [Flomax] 0.4 mg PO DAILY 01/21/17 Allopurinol 100 mg PO DAILY 07/12/20 Aspirin [Aspirin, Baby] 81 mg PO DAILY@0800 07/12/20 Carvedilol [Coreg (Beta Yanira)] 3.125 mg PO BID 07/12/20 Clopidogrel Bisulfate [Plavix] 75 mg PO DAILY 07/12/20 Losartan Potassium [Cozaar] 100 mg PO DAILY 07/12/20 glyBURIDE [Micronase] 2.5 mg PO DAILY@0800 07/12/20 Gabapentin [Neurontin] 300 mg PO TID PRN PRN 09/23/20 Surgical History: coronary bypass surgery - 1993, herniorrhaphy, pacemaker implantation - with ICD, total knee arthroplasty - bilateral 2007, - - neck surgery 2001 Psychiatric History: No pertinent psych hx Lives: Spouse/ Significant Other Smoking Status: Former smoker Alcohol: None Drugs: None - *Family History Maternal History Items: Heart Disease - age 82 Paternal History Items: No pertinent history - age 95 Sibling History Items: Cancer - brother age 58, prostate Offspring History Items: - - 4 daughters Review of Systems Constitutional: Reports: Weakness. Denies: Chills, Fever, Weight Change HEENT: Denies: Head Aches, Sinus Congestion, Sinus Drainage Cardiovascular: Denies: Chest Pain, Palpitations Respiratory: Denies: Cough, Shortness of breath at rest, Sputum production Gastrointestinal: Denies: Abdominal Pain, Nausea, Vomiting Genitourinary: Denies: Dysuria Musculoskeletal: Reports: - - Left hip pain and left wrist pain. Denies: Joint Pain, Joint Tenderness Skin: Denies: Rash, Wounds Neurological: Denies: Numbness, Tingling, Focal weakness Psychiatric: Denies: Anxiety, Depression Hematologic/ Lymphatic: Denies: Easy Bruising, Easy Bleeding VTE Information - Inpt Only VTE Present on Admission: No Patient Problems: Active and Suspected Problems Fracture of triquetrum of left wrist (Acute) Recurrent falls (Acute) Acute pain of left hip (Acute) Inability to ambulate due to left hip (Acute) - Physical Exam Vitals/I&O's: Vital Signs Temp Pulse Resp BP Pulse Ox 97.3 F L 63 16 195/87 H 97 09/23/20 11:30 09/23/20 11:37 09/23/20 11:37 09/23/20 11:37 09/23/20 11:37 Oxygen Delivery Method Room Air Weight: 286 lb 9.615 oz Body Mass Index (BMI) 42.3 Finger Stick Blood Glucose 91 General: Alert, Oriented x3, Cooperative, No apparent distress HEENT: Atraumatic, PERRLA, EOMI, Normocephalic Oral: Moist Mucosa Neck: Supple, No JVD Lungs: Normal air movement, No rhonchi, No wheeze, No rales, Diminished Cardiovascular: Regular rate, Regular Rhythm, Normal S1, Normal S2, No murmurs Abdomen: Soft, Non Tender, Non-Distended, No Hepato-splenomegaly Extremities: No edema, Capillary Refill Less than 3 Seconds Skin: No rashes, No breakdown Musculoskeletal: Tenderness - To palpation of his left lateral hip, - - Swelling of his left wrist with mild pain to palpation Neurological: Neuro grossly intact, Sensory exam intact to light touch and pain Psych/Mental Status: Normal Affect, Appropriate Microbiology Past 72 Hours 09/23/20 13:30 Mucosa - Nose SARS-CoV-2 Antigen (Rapid) - Final Laboratory Results 09/23/20 11:50: Urine Color Yellow, Urine Clarity Sl. Cloudy, Urine pH 7.0, Ur Specific [place] 1.010, Urine Protein Negative, Urine Glucose (UA) Normal, Urine Ketones Negative, Urine Occult Blood Negative, Urine Nitrite Negative, Urine Bilirubin Negative, Urine Urobilinogen Normal, Ur Leukocyte Esterase Negative, Urine RBC 0 SEEN, Urine WBC 0 SEEN, Ur Squamous Epith Cells 0 SEEN, Urine Bacteria 0 SEEN, Urine Mucus 0 SEEN 09/23/20 12:20: WBC 8.7, RBC 4.50 L, Hgb 13.7, Hct 42.0, MCV 93.3, MCH 30.4, MCHC 32.6, RDW Std Deviation 56.9 H, RDW Coeff of David 16.7 H, Plt Count 267, MPV 8.7, Immature Gran % (Auto) 1.500 H, Neut % (Auto) 75.9 H, Lymph % (Auto) 11.4 L, [place] % (Auto) 8.6, Eos % (Auto) 2.3, Baso % (Auto) 0.3, Absolute Neuts (auto) 6.6, Absolute Lymphs (auto) 0.99, Nucleated RBC % 0 09/23/20 12:20: Sodium 138, Potassium 3.5, Chloride 106, Carbon Dioxide 27.0, Anion Gap 5, BUN 13, Creatinine 0.97, Estim Creat Clear Calc 63.78, Est GFR (MDRD) Af Amer 96, Est GFR (MDRD) Non-Af 80, BUN/Creatinine Ratio 13.4, Glucose 67 L, Calcium 8.7, Troponin I 0.022 Assessment/Plan All Active Problems Fracture of triquetrum of left wrist (Acute) Recurrent falls (Acute) Acute pain of left hip (Acute) Inability to ambulate due to left hip (Acute) Acute gouty arthritis (Acute) 1. Weakness with falls no LOC/left hip pain/left triquetrum fracture -Is a nondisplaced avulsion fracture of his triquetrum, will place him in a splint and have him follow-up with orthopedic surgery as an outpatient normally these are nonoperative -We will obtain a CT scan of his left hip for better characterization -PT/OT -Case management to assist with possible placement -X-ray of his hip was negative for fracture, based on where his pain is for palpation could be a bursitis versus just bruising from falling against the shower which caused his left wrist fracture 2. CAD status post CABG and stents/pacemaker and ICD placement/HTN/HLD -Blood pressures are on the high side -Continue with his home blood pressure medications of losartan, Lasix, Coreg -We will make adjustments as necessary -Continue with aspirin, Plavix, will Lipitor 3. Gout -Stable -Continue with allopurinol, his right wrist is generally swollen from his arthritis, he had recently been admitted in July for gout flare needing prednisone and he was discharged on 40 mg daily for 5 to 10 days. 4. DM 2 -Stable, will hold his glimepiride and place him on a sliding scale insulin. -Accu-Cheks AC at bedtime, will make adjustments to his insulin dosing as necessary 5. BPH -Stable -Continue with Flomax DVT: Lovenox OBSV E&M: 37721 Initial observation care L2
--- NOTE | 2020-09-23 15:30 | CT_ITS ---
Exam: CT of the left hip. HISTORY: RECURRENT FALLS. LEFT HIP PAIN. COMPARISON: Radiographs of the same day. Individualized dose optimization techniques were used for this CT. Results: No acute fracture or dislocation. Normal bone contours. Mineralization appears within normal limits. Moderate diffuse degenerative changes. Fusion of the lower lumbar spine. Prominently calcified vascular structures, otherwise negative soft tissues. CT/Extremity Lower without Contra IMPRESSION: No definite acute abnormalities. Electronically Signed: Terry Lopez MD at 16:51 EST , Service support ,
[2020-09-23 16:14] VITALS: BP 176/112; PULSE 94; RESP 22; TEMP 36.7; O2SAT 98
[2020-09-23 16:17] VITALS: BP 176/78; PULSE 78; O2SAT 97
[2020-09-23 16:49] VITALS: BMI 40.4
[2020-09-23 16:51] VITALS: BMI 40.4
[2020-09-23 17:17] VITALS: BP 168/94; PULSE 70; RESP 16; TEMP 36.6; O2SAT 97
[2020-09-23 17:46] LABS: Bedside Glucose 91 mg/dL (70-110)
[2020-09-23] MEDS: Gabapentin 300 MG Capsule PO (20:56)
[2020-09-23] MEDS: Carvedilol 3.125 MG TABLET PO (20:56)
[2020-09-23] MEDS: Atorvastatin Calcium 40 MG Tablet PO (20:57)
[2020-09-23 23:00] VITALS: BP 140/68; PULSE 83; RESP 16; TEMP 37.3; O2SAT 96
[2020-09-23] MEDS: Acetaminophen 325 MG Tablet 650 MG PO (23:49)
--- NOTE | 2020-09-24 01:18 | NURSING ---
Pt refusing to have blood glucose tests and to be on humalog sliding scale medication. Pt stated I am not diabetic and I don't know why they keep saying I am! I think it must have carried over from [facility] when I was there.
[2020-09-24 05:00] VITALS: BP 117/59; PULSE 74; RESP 16; TEMP 37.2; O2SAT 94
[2020-09-24] MEDS: Acetaminophen 325 MG Tablet 650 MG PO (06:27)
[2020-09-24 06:50] LABS: Absolute Neutrophil Count 6.9 X10^3/uL (2.0-7.7); Basophil# 0.02 X10^3/uL; Basophil% 0.2 % (0-1); Eosinophil# 0.15 X10^3/uL; Eosinophils% 1.6 % (0-5); Hematocrit 39.4 % (40-54); Hemoglobin 12.8 g/dL (13.0-16.5); Lymphocyte % 10.9 % (19-41); Mean Corp Hgb Conc 32.5 g/dL (32-36); Mean Corpuscular Hgb 30.8 pg (27.0-32.0); Mean Corpuscular Volume 94.7 fL (80-94); Mean Platelet Vol. 8.9 fl (6.2-12.0); Monocyte# 1.07 X10^3/uL; Monocyte% 11.7 % (0-10); NRBC Flagged by Analyzer 0 % (0-5); Neutrophil # 6.85 X10^3/uL (2.7-7.7); Neutrophil % 74.7 % (47-70); Platelet Count 237 K/mm3 (150-450); RBC Distribution Width CV 16.7 % (11.6-14.6); Red Blood Count 4.16 M/mm3 (4.6-6.2); White Blood Count 9.2 K/mm3 (4.4-11.0)
[2020-09-24 07:16] LABS: Anion Gap 7 (5-15); BUN 19 mg/dL (7-18); BUN/Creat Ratio 17.9 RATIO (10-20); Calcium,Total 8.7 mg/dL (8.5-10.1); Chloride 105 mmol/L (98-107); Creatinine, Serum 1.06 mg/dL (0.70-1.30); EST Glomerular Filtration Rate 72 mL/min (>60); Est Glom Filt Rate - Afr Amer 87 mL/min (>60); Estimated Creatinine Clearance 58.36 ml/min; Glucose 95 mg/dL (74-106); Potassium 3.6 mmol/L (3.5-5.1); Sodium Level 138 mmol/L (136-145)
--- NOTE | 2020-09-24 07:37 | NURSING ---
female phoned in- states she is pt daughter Wendi. states she would like to speak with case management about discharge planning and trying to get her dad into 4th floor rehab/TCU. left her phone number [phone]. Note placed at CM desk for them requesting return phone call to daughter.
[2020-09-24] MEDS: Clopidogrel Bisulfate 75 MG Tablet PO (09:11)
[2020-09-24] MEDS: Aspirin 81 MG TAB.CHEW PO (09:11)
[2020-09-24] MEDS: Allopurinol 100 MG Tablet 200 MG PO (09:11)
[2020-09-24] MEDS: Gabapentin 300 MG Capsule PO (09:12)
[2020-09-24] MEDS: Losartan Potassium 50 MG Tablet PO (09:12)
[2020-09-24] MEDS: Carvedilol 3.125 MG TABLET PO (09:12)
[2020-09-24] MEDS: Tamsulosin HCl 0.4 MG Capsule 0.8 MG PO (09:12)
[2020-09-24] MEDS: Glucerna Shake 120 ML LIQUID PO (09:22)
[2020-09-24 09:42] VITALS: BP 128/57; PULSE 77; RESP 18; TEMP 37; O2SAT 96
--- NOTE | 2020-09-24 12:30 | CASEMGMT ---
Social Work Consult: Halfway Placement Informant: ice guard inspector Met with patient in room. Introduced self and high school social studies tutor role. Patient agreeable to speak with this high school social studies tutor. Patient reports to lives at home with spouse in a private one story home with x2 steps to enter the home. Patient reports to have a walker, rollator, cane, power wheelchair, lift chair, raised toilet seat, grab bars, patented hogshead assembler, shower chair, and sock aid. Patient reports to primarily be independent with activities prior to hospitalization and to use a walker for the pat 5 years. 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 Patient reports to be concerned about returning to home as due to wrist fracture patient is not going to be able to use a walker. Patient is inquiring about detention home stay for therapy. This high school social studies tutor provided patient with list of in-network nursing homes to patient geographical region. Patient is choosing [facility] as first choice and [facility] choice. Telephone call to [facility]. No open beds. Telephone call to [facility]. There are open beds and Martha confirms to accept patient insurance. Martha reports to be able to review clinical information. Clinical information faxed. Pending approval. PLAN: alf placement. Will continue to follow. Doroteo CORCORAN, JIA
[2020-09-24 12:36] LABS: Bedside Glucose 160 mg/dL (70-110)
[2020-09-24] MEDS: Acetaminophen 500 MG Tablet 1000 MG PO (12:47)
[2020-09-24] MEDS: Insulin Lispro 100 UNIT/ML INSULN.PEN SC (12:48)
[2020-09-24 12:52] VITALS: BP 138/76; PULSE 90; RESP 18; TEMP 37.2; O2SAT 96
--- NOTE | 2020-09-24 14:10 | CASEMGMT ---
Social Work Telephone call to [facility] to inquiring about status of patient case, voicemail left for Crystal. Will continue to follow. Doroteo Adams MSW, JIA
--- NOTE | 2020-09-24 14:23 | NURSING ---
left wrist brace obtained to be applied to Left wrist area- pt continues to refuse brace. Dr. Rizo aware
--- NOTE | 2020-09-24 14:46 | CASEMGMT ---
Social Work Telephone call to [facility]. Patient has been accepted. Telephone call to [facility] to initiate pre-cert. Voicemail left. Clinical information faxed. PLAN: [facility] pending precert Doroteo Adams MSW, JULIAN-S
--- NOTE | 2020-09-24 15:06 | PN_ITS ---
Patient Problems: Active and Suspected Problems Fracture of triquetrum of left wrist (Acute) Recurrent falls (Acute) Acute pain of left hip (Acute) Inability to ambulate due to left hip (Acute) Subjective: Feels well. Still with wrist pain. Inquiring about cortisol injection. Vitals/I&O's: Vital Signs Temp Pulse Resp BP Pulse Ox 37.2 C 90 18 138/76 H 96 09/24/20 12:52 09/24/20 12:52 09/24/20 12:52 09/24/20 12:52 09/24/20 12:52 Oxygen Delivery Method Room Air Weight: 124.2 kg Body Mass Index (BMI) 40.4 Finger Stick Blood Glucose 91 Intake and Output for Last 24 Hours 09/22/20 09/23/20 09/24/20 23:59 23:59 23:59 Intake Total 1500 / 1500 Output Total 225 / 225 1400 / 1400 Balance -225 / -225 100 / 100 General: Alert, No apparent distress HEENT: Atraumatic, Normocephalic Oral: Moist Mucosa, No Gingival or Mucosal Lesions/ Ulcerations Neck: No Nodes, Thyroid Normal Size and Texture Lungs: Clear to auscultation, Normal air movement, No rhonchi, No wheeze Cardiovascular: Regular rate, Regular Rhythm, Normal S1, Normal S2 Abdomen: Bowel Sounds Present, Soft, Non Tender, Non-Distended Musculoskeletal: - - TTP on left ulnar wrist and right ulnar wrist. Psych/Mental Status: Normal Affect, Appropriate Microbiology Past 72 Hours 09/23/20 13:30 Mucosa - Nose SARS-CoV-2 Antigen (Rapid) - Final Laboratory Results 09/23/20 17:38: POC Glucose 91 09/24/20 06:30: WBC 9.2, RBC 4.16 L, Hgb 12.8 L, Hct 39.4 L, MCV 94.7 H, MCH 30.8, MCHC 32.5, RDW Std Deviation 58.0 H, RDW Coeff of David 16.7 H, Plt Count 237, MPV 8.9, Immature Gran % (Auto) 0.900, Neut % (Auto) 74.7 H, Lymph % (Auto) 10.9 L, [place] % (Auto) 11.7 H, Eos % (Auto) 1.6, Baso % (Auto) 0.2, Absolute Neuts (auto) 6.9, Absolute Lymphs (auto) 1.00, Nucleated RBC % 0 09/24/20 06:30: Sodium 138, Potassium 3.6, Chloride 105, Carbon Dioxide 26.0, Anion Gap 7, BUN 19 H, Creatinine 1.06, Estim Creat Clear Calc 58.36, Est GFR (MDRD) Af Amer 87, Est GFR (MDRD) Non-Af 72, BUN/Creatinine Ratio 17.9, Glucose 95, Calcium 8.7 09/24/20 12:30: POC Glucose 160 H Current Medications Acetaminophen (Acetaminophen 500 Mg Tablet) 1,000 mg PO Q8H PRN PRN Reason: Pain 1-10 or Fever Last Admin: 09/24/20 12:47 Dose: 1,000 mg Documented by: Allopurinol (Allopurinol 100 Mg Tablet) 200 mg PO DAILY [facility] Last Admin: 09/24/20 09:11 Dose: 200 mg Documented by: Aspirin (Aspirin 81 Mg Tab.Chew) 81 mg PO DAILY@0800 [facility] Last Admin: 09/24/20 09:11 Dose: 81 mg Documented by: Atorvastatin Calcium (Atorvastatin Calcium 40 Mg Tablet) 40 mg PO QHS [facility] Last Admin: 09/23/20 20:57 Dose: 40 mg Documented by: Carvedilol (Carvedilol 3.125 Mg Tablet) 3.125 mg PO BID [facility] Last Admin: 09/24/20 09:12 Dose: 3.125 mg Documented by: Clopidogrel Bisulfate (Clopidogrel Bisulfate 75 Mg Tablet) 75 mg PO DAILY [facility] Last Admin: 09/24/20 09:11 Dose: 75 mg Documented by: Dextrose (Dextrose 50%-Water 25 Gm/50 Ml Disp.Syrin) 0 gm IV X1 PRN; Protocol PRN Reason: Hypoglycemia Gabapentin (Gabapentin 300 Mg Capsule) 300 mg PO BID [facility] Last Admin: 09/24/20 09:12 Dose: 300 mg Documented by: Glucagon (Glucagon 1 Mg/Ml Syringe) 1 mg IM .X1 PRN PRN Reason: Hypoglycemia Ibuprofen (Ibuprofen 600 Mg Tablet) 600 mg PO Q6H PRN PRN PRN Reason: Pain 1-10 or Fever Insulin Human Lispro (Insulin Lispro 100 Unit/Ml Insuln.Pen) 0 unit [facility]; Protocol Last Admin: 09/24/20 12:48 Dose: 2 u Documented by: Losartan Potassium (Losartan Potassium 50 Mg Tablet) 50 mg PO DAILY [facility] Last Admin: 09/24/20 09:12 Dose: 50 mg Documented by: Melatonin (Melatonin 3 Mg Tablet) 3 mg PO QHS PRN PRN PRN Reason: INSOMNIA Nutritional Formula (Lactose Free) (Glucerna Shake 120 Ml Liquid) 120 ml PO TIDCM [facility] Last Admin: 09/24/20 12:51 Dose: Not Given Documented by: Ondansetron HCl (Ondansetron 4 Mg/2 Ml Vial) 4 mg IV Q8H PRN PRN PRN Reason: NAUSEA/VOMITING Sodium Chloride (0.9% Saline Lock 10 Ml Syringe) 10 - 40 ml IV UD PRN PRN Reason: SALINE FLUSH Tamsulosin HCl (Tamsulosin Hcl 0.4 Mg Capsule) 0.8 mg PO DAILY [facility] Last Admin: 09/24/20 09:12 Dose: 0.8 mg Documented by: STROKE Vital Signs/Narrative: Vital Signs Temp Pulse Resp BP Pulse Ox 09/24/20 12:52 37.2 C 90 18 138/76 H 96 Medical Necessity - Tobacco Use Smoking Status: Former smoker Assessment/Plan All Active Problems Fracture of triquetrum of left wrist (Acute) Recurrent falls (Acute) Acute pain of left hip (Acute) Inability to ambulate due to left hip (Acute) Acute gouty arthritis (Acute) 1. debility * therapy eval recommended additional therapy 2. left triquetrum fracture * volar splint w extension * follow up with orthopaedics as outpt. 3. CAD: stable 4. Gout: allopurinol 5. VTE prophylaxis: LMWH OBSV E&M: 95391 Subsequent observation care L2
--- NOTE | 2020-09-24 15:30 | CASEMGMT ---
Social Work Telephone call to [facility]. Second voicemail left inquiring about pre-cert status. PLAN: [facility] pending precert. Doroteo Adams MSW, RADHAS
--- NOTE | 2020-09-24 15:56 | CASEMGMT ---
RUDOLPH RAYMOND in to discuss PULIDO form with patient. RN MANDI explained PULIDO form, patient voiced understanding. Patient signed PULIDO form and filed in chart. Patient provided with copy of signed PULIDO form. Patient had no further questions or concerns at this time.
--- NOTE | 2020-09-24 16:07 | CASEMGMT ---
Social Work Telephone call from Inez Pitts. Patient approved for transfer to [facility] today. This social work lecturer updated patient on above. Patient requesting for this social work lecturer to update Anabella on plan. Telephone call to [facility], transportation set up for 18:30 today. Transportation form completed and placed with patient discharge packet. Updated patient and medical team on patient D/C time and plan. Telephone call to [facility]. Martha updated on patient transportation time and insurance approval. Telephone call to Anabella Kyle updated on above plan. PLAN: Discharge to [facility]. Doroteo CORCORAN, JIA
--- NOTE | 2020-09-24 16:22 | PCM.TXEXTCAR ---
- Diet 09/23/20 16:51 Diet: Consistent Carb - Calorie Controlled Food consistency:: Regular Liquid Consistency:: Regular/Thin How many daily calories?: 1800 calorie - Therapies Weight Bearing: Non weight bearing Extremity Affected:: Left Upper Physical Therapy: Eval and Treat Occupational Therapy: Eval and Treat - Allergies/Procedures Done in Hospital Allergies/Adverse Reactions: Allergies misoprostol [From Cytotec] Allergy (Verified 09/23/20 11:29) Hives oxycodone [From Percocet] Allergy (Verified 09/23/20 11:29) PT UNSURE OF REACTION Penicillins Allergy (Verified 09/23/20 11:29) Hives Sulfa (Sulfonamide Antibiotics) Allergy (Verified 09/23/20 11:29) Hives artificial sweetners Adverse Reaction (Uncoded 09/23/20 17:03) Diarrhea Procedures: None - Type of Care/Length of Stay Estimated LOS: Convalescent Care Less Than 30 days Type of Care Needed: Skilled Rehab Potential: Fair Prognosis: Good - Additional Orders/Day of Discharge Additional Orders: volar splint with slight extention of left wrist. continue until seen by orthopaedics. Day of Discharge: 09/24/20 - Follow Up Care Primary Care Physician: Angel Fields MD [Primary Care Provider] - Within 2 Weeks Please Follow Up With: Orthopaedics When: 2-3 weeks
--- NOTE | 2020-09-24 16:28 | PCM.DC.SUM ---
Discharge Date and Diagnosis - Problem List Patient Problems: Active and Suspected Problems Fracture of triquetrum of left wrist (Acute) Recurrent falls (Acute) Acute pain of left hip (Acute) Inability to ambulate due to left hip (Acute) Date of Admission: 09/23/20 Date of Discharge: 09/24/20 - Primary Discharge Diagnosis Acute Problems: Active Problems Fracture of triquetrum of left wrist (Acute) Recurrent falls (Acute) Acute pain of left hip (Acute) Inability to ambulate due to left hip (Acute) - Secondary Discharge Diagnosis Chronic Problems: Chronic Problems Gout (Chronic) Pre-diabetes (Chronic) CAD (coronary artery disease) (Chronic) Ankylosing spondylitis (Chronic) Hypertension (Chronic) Sleep apnea in adult (Chronic) Obesity (BMI 30-39.9) (Chronic) Osteoarthritis (Chronic) Hospital Course and Treatment Imaging Results: Clinical Impression(s) from Imaging Studies Brain CT 09/23/20 11:45 IMPRESSION: Chronic involutional changes of the brain. Electronically Signed: Merrick Brand MD at 13:16 EST , Service support , Chest X-Ray 09/23/20 12:33 IMPRESSION: Hyperinflation. The lungs are clear. Electronically Signed: Merrick Brand MD at 12:57 EST , Service support , Hip/Pelvis X-Ray 09/23/20 12:33 IMPRESSION: Degenerative changes. No fracture or dislocation is seen. Electronically Signed: Merrick Brand MD at 12:57 EST , Service support , Wrist X-Ray 09/23/20 12:33 IMPRESSION: I suspect a nondisplaced avulsion fracture of the triquetrum with overlying soft tissue swelling. Vascular calcification. Calcification of the triangular fibrocartilage in keeping with chondrocalcinosis. Electronically Signed: Merrick Brand MD at 12:55 EST , Service support , Lower Extremity CT 09/23/20 15:30 IMPRESSION: No definite acute abnormalities. Electronically Signed: Terry Lopez MD at 16:51 EST , Service support , Operations: None Procedures: None Summary of Care Provided: The patient is a 75 year old M presents with falls. Patient stated that his left hip gave out causing him to fall. Patient presented to the emergency room and had scans. Patient was found to have a an avulsion fracture of his left triquetrum. No other fracture was identified. Patient was having pain in his hips he did have a CT that did not show any fracture. Given his debility and unsteadiness, patient was deemed a candidate for additional therapy. Patient will be discharged to [facility] for further rehab services prior to returning home. For the patient's triquetrium fracture, patient will be nonweightbearing on left upper extremity and have a splint applied with slight extension. Patient will need to follow-up orthopedics as to when that could be removed. [] Patient Problems: Active and Suspected Problems Fracture of triquetrum of left wrist (Acute) Recurrent falls (Acute) Acute pain of left hip (Acute) Inability to ambulate due to left hip (Acute) - Physical Exam Vitals/I&O's: Vital Signs Temp Pulse Resp BP Pulse Ox 37.2 C 90 18 138/76 H 96 09/24/20 12:52 09/24/20 12:52 09/24/20 12:52 09/24/20 12:52 09/24/20 12:52 Oxygen Delivery Method Room Air Weight: 124.2 kg Body Mass Index (BMI) 40.4 Finger Stick Blood Glucose 91 Intake and Output for Last 24 Hours 09/22/20 09/23/20 09/24/20 23:59 23:59 23:59 Intake Total 1500 / 1500 Output Total 225 / 225 1400 / 1400 Balance -225 / -225 100 / 100 Microbiology Past 72 Hours 09/23/20 13:30 Mucosa - Nose SARS-CoV-2 Antigen (Rapid) - Final Laboratory Results 09/23/20 17:38: POC Glucose 91 02/17/21 06:30: WBC 9.2, RBC 4.16 L, Hgb 12.8 L, Hct 39.4 L, MCV 94.7 H, MCH 30.8, MCHC 32.5, RDW Std Deviation 58.0 H, RDW Coeff of David 16.7 H, Plt Count 237, MPV 8.9, Immature Gran % (Auto) 0.900, Neut % (Auto) 74.7 H, Lymph % (Auto) 10.9 L, [place] % (Auto) 11.7 H, Eos % (Auto) 1.6, Baso % (Auto) 0.2, Absolute Neuts (auto) 6.9, Absolute Lymphs (auto) 1.00, Nucleated RBC % 0 09/24/20 06:30: Sodium 138, Potassium 3.6, Chloride 105, Carbon Dioxide 26.0, Anion Gap 7, BUN 19 H, Creatinine 1.06, Estim Creat Clear Calc 58.36, Est GFR (MDRD) Af Amer 87, Est GFR (MDRD) Non-Af 72, BUN/Creatinine Ratio 17.9, Glucose 95, Calcium 8.7 09/24/20 12:30: POC Glucose 160 H Current Medications Acetaminophen (Acetaminophen 500 Mg Tablet) 1,000 mg PO Q8H PRN PRN Reason: Pain 1-10 or Fever Last Admin: 09/24/20 12:47 Dose: 1,000 mg Documented by: Allopurinol (Allopurinol 100 Mg Tablet) 200 mg PO DAILY [facility] Last Admin: 09/24/20 09:11 Dose: 200 mg Documented by: Aspirin (Aspirin 81 Mg Tab.Chew) 81 mg PO DAILY@0800 [facility] Last Admin: 09/24/20 09:11 Dose: 81 mg Documented by: Atorvastatin Calcium (Atorvastatin Calcium 40 Mg Tablet) 40 mg PO QHS [facility] Last Admin: 09/23/20 20:57 Dose: 40 mg Documented by: Carvedilol (Carvedilol 3.125 Mg Tablet) 3.125 mg PO BID [facility] Last Admin: 09/24/20 09:12 Dose: 3.125 mg Documented by: Clopidogrel Bisulfate (Clopidogrel Bisulfate 75 Mg Tablet) 75 mg PO DAILY [facility] Last Admin: 09/24/20 09:11 Dose: 75 mg Documented by: Dextrose (Dextrose 50%-Water 25 Gm/50 Ml Disp.Syrin) 0 gm IV X1 PRN; Protocol PRN Reason: Hypoglycemia Gabapentin (Gabapentin 300 Mg Capsule) 300 mg PO BID [facility] Last Admin: 09/24/20 09:12 Dose: 300 mg Documented by: Glucagon (Glucagon 1 Mg/Ml Syringe) 1 mg IM .X1 PRN PRN Reason: Hypoglycemia Ibuprofen (Ibuprofen 600 Mg Tablet) 600 mg PO Q6H PRN PRN PRN Reason: Pain 1-10 or Fever Insulin Human Lispro (Insulin Lispro 100 Unit/Ml Insuln.Pen) 0 unit SC ACHS [facility]; Protocol Last Admin: 09/24/20 12:48 Dose: 2 u Documented by: Losartan Potassium (Losartan Potassium 50 Mg Tablet) 50 mg PO DAILY [facility] Last Admin: 09/24/20 09:12 Dose: 50 mg Documented by: Melatonin (Melatonin 3 Mg Tablet) 3 mg PO QHS PRN PRN PRN Reason: INSOMNIA Nutritional Formula (Lactose Free) (Glucerna Shake 120 Ml Liquid) 120 ml PO TIDCM [facility] Last Admin: 09/24/20 12:51 Dose: Not Given Documented by: Ondansetron HCl (Ondansetron 4 Mg/2 Ml Vial) 4 mg IV Q8H PRN PRN PRN Reason: NAUSEA/VOMITING Sodium Chloride (0.9% Saline Lock 10 Ml Syringe) 10 - 40 ml IV UD PRN PRN Reason: SALINE FLUSH Tamsulosin HCl (Tamsulosin Hcl 0.4 Mg Capsule) 0.8 mg PO DAILY [facility] Last Admin: 09/24/20 09:12 Dose: 0.8 mg Documented by: Discharge Diet: 1800 Calorie Control Diet Discharge Activity: Return to Normal Activity Weight Bearing Status: No weight bearing Keep extremity elevated above heart level: Left Arm Home Medications: Medications to take at Discharge Tamsulosin HCl [Flomax] 0.8 mg PO DAILY PRN 01/21/17 Allopurinol 200 mg PO DAILY 07/12/20 Aspirin [Aspirin, Baby] 81 mg PO DAILY@0800 07/12/20 Carvedilol [Coreg (Beta Yanira)] 3.125 mg PO BID 07/12/20 Clopidogrel Bisulfate [Plavix] 75 mg PO DAILY 07/12/20 Atorvastatin Calcium 40 mg PO QHS 09/23/20 Dristan Nasal [place] 2 spray INHALATION BID PRN 09/23/20 Furosemide 40 mg PO DAILY PRN 09/23/20 Gabapentin 300 mg PO TID 09/23/20 Glimepiride [Amaryl] 4 mg PO DAILY 09/23/20 Losartan Potassium [Cozaar] 50 mg PO DAILY 09/23/20 Potassium Chloride 10 meq PO DAILY PRN 09/23/20 Acetaminophen [Tylenol] 1,000 mg PO Q8H PRN tab 09/24/20 Glucerna Shake 120 ml PO TIDCM liquid 09/24/20 Ibuprofen [Motrin] 600 mg PO Q6H PRN PRN tab 09/24/20 Insulin Lispro [Humalog KwikPen] See Protocol SC ACHS insuln.pen 09/24/20 Melatonin 3 mg PO QHS PRN PRN tab 09/24/20 Primary Care Physician: Angel Fields MD [Primary Care Provider] - Within 2 Weeks Please Follow Up With: Orthopaedics When: 2-3 weeks Disposition: Longterm facility Minutes spent on discharge:: 28 Patient Condition:: Fair Medical Necessity - Tobacco Use Smoking Status: Former smoker Meaningful Use Info Meaningful Use Diagnoses (Choose all that apply): None applicable OBSV E&M: 14957 Observation care discharge
--- NOTE | 2020-09-24 16:53 | PHA.DC.MR ---
Pharmacy Service has performed discharge medication reconciliation for this patient. The patient's discharge medication list was reviewed for discrepancies and discrepancies were resolved. Home Medications Tamsulosin HCl [Flomax] 0.8 mg PO DAILY PRN 01/21/17 Allopurinol 200 mg PO DAILY 07/12/20 Aspirin [Aspirin, Baby] 81 mg PO DAILY@0800 07/12/20 Carvedilol [Coreg (Beta Yanira)] 3.125 mg PO BID 07/12/20 Clopidogrel Bisulfate [Plavix] 75 mg PO DAILY 07/12/20 Atorvastatin Calcium 40 mg PO QHS 09/23/20 Dristan Nasal [place] 2 spray INHALATION BID PRN 09/23/20 Furosemide 40 mg PO DAILY PRN 09/23/20 Gabapentin 300 mg PO TID 09/23/20 Glimepiride [Amaryl] 4 mg PO DAILY 09/23/20 Losartan Potassium [Cozaar] 50 mg PO DAILY 09/23/20 Potassium Chloride 10 meq PO DAILY PRN 09/23/20 Acetaminophen [Tylenol] 1,000 mg PO Q8H PRN tab 09/24/20 Glucerna Shake 120 ml PO TIDCM liquid 09/24/20 Ibuprofen [Motrin] 600 mg PO Q6H PRN PRN tab 09/24/20 Insulin Lispro [Humalog KwikPen] See Protocol SC ACHS insuln.pen 09/24/20 Melatonin 3 mg PO QHS PRN PRN tab 09/24/20
[2020-09-24 17:40] LABS: Bedside Glucose 148 mg/dL (70-110)
--- NOTE | 2020-09-24 17:57 | NURSING ---
report called to Estefania at [facility].
[2020-09-24 18:35] VITALS: BP 119/79; PULSE 76; RESP 18; TEMP 36.7; O2SAT 98
--- NOTE | 2020-09-24 18:35 | CASEMGMT ---
Social Work [phone], signed medication list, and discharge summary/transfer form faxed to [facility]. Copy of [id number] placed in patient chart. Doroteo CORCORAN, JIA
--- NOTE | 2020-09-24 19:03 | CASEMGMT ---
Social Work Messaged received that patient is currently active with [facility] ([phone]). Telephone call to Jam[facility] to update that patient will be discharge to SNF ([facility]). Doroteo Adams MSW, JIA
== END 2020-09-24 18:50 | disposition skilled nursing facility (03) ==
LOC: ED 14:44 → MS3 15:27
PROVIDERS: Admitting Provider Family Medicine; Emergency Provider Emergency Medicine; PCP Internal Medicine Infectious Disease
DX: S62.115A Nondisplaced fracture of triquetrum [cuneiform] bone, left wrist, initial encounter for closed fracture (principal); W18.2XXA Fall in (into) shower or empty bathtub, initial encounter; Y93.9 Activity, unspecified; Y92.002 Bathroom of unspecified non-institutional (private) residence as the place of occurrence of the external cause; Y99.9 Unspecified external cause status; R29.6 Repeated falls; M25.552 Pain in left hip; M10.9 Gout, unspecified; I25.10 Atherosclerotic heart disease of native coronary artery without angina pectoris; I10 Essential (primary) hypertension; M19.90 Unspecified osteoarthritis, unspecified site; E66.9 Obesity, unspecified; G47.30 Sleep apnea, unspecified; R53.1 Weakness; E11.9 Type 2 diabetes mellitus without complications; N40.0 Benign prostatic hyperplasia without lower urinary tract symptoms; Z79.899 Other long term (current) drug therapy; Z79.02 Long term (current) use of antithrombotics/antiplatelets; Z79.82 Long term (current) use of aspirin; Z87.891 Personal history of nicotine dependence; Z95.1 Presence of aortocoronary bypass graft; Z95.810 Presence of automatic (implantable) cardiac defibrillator; Z68.41 Body mass index [BMI] 40.0-44.9, adult
CPT/HCPCS: 36415; 70450; 71045; 73110; 73502; 73700; 80048; 81001; 82962; 84484; 85025; 87426; 93005; 97163; 97166; 99218; 99285; A4216; G0378

== ENCOUNTER 2020-12-03 12:20 | Emergency (ER) | payer MEDICARE, SELFPAY ==
[2020-12-03] VITALS (7 sets, daily range): BP systolic 125–164; BP diastolic 52–92; PULSE 65–72; RESP 14–17; TEMP 36.7–36.8; O2SAT 94–97; BMI 42.3
--- NOTE | 2020-12-03 12:30 | EKG12_ITS ---
Test Reason : DEFIB ACTIVATED X 2 Blood Pressure : / mmHG Vent. Rate : 061 BPM Atrial Rate : 250 BPM P-R Int : 000 ms QRS Dur : 086 ms QT Int : 420 ms P-R-T Axes : 000 054 256 degrees QTc Int : 422 ms Atrial fibrillation Low voltage QRS Septal infarct , age undetermined Abnormal ECG Confirmed by JEWELL MADSEN, DEIRDRE ([id number]), newspaper editor VIANNEY SANABRIA ([id number]) on 12/05/2020 10:02:07 AM Referred By: BALJIT/JILL Confirmed By:DEIRDRE CORCORAN MD
--- NOTE | 2020-12-03 12:42 | EDS_ITS ---
HPI History of Present Illness Chief Complaint: Palpitations Informant: patient and spouse/S.O. Narrative Narrative: 75-year-old male states he needs to go to [facility] to have his defibrillator replaced. He tells me that he has been shocked twice in the past week the last being last night. He states he called the device clinic at [facility] where he had it placed and they advised him to go to [facility]. So the patient and his called EMS who cannot transfer that far so they brought him to [facility]. Apparently the device clinic has already talked to [facility]. He has a history of stents to his LAD in July. They tell me that he was shocked for symptomatic V. fib last night. They also however note that he has noise in the RV lead and cracking. That the lead is on recall. The only facility that is replacing this is [facility]. Patient currently has no complaints other than he wants to get the [facility] as quickly as possible. The patient's doctor at [facility] is Dr. Yancey at [phone] [facility] Medical History (Updated 12/03/20 @ 14:[address] Yadiel Akbar, ) Atrial fibrillation Coronary artery disease Diabetes Hypertension ICD (implantable cardioverter-defibrillator) in place Sleep apnea Home Medications allopurinol 200 mg PO DAILY 07/12/20 [History Last Taken 09/22/20] aspirin 81 mg PO DAILY@0800 07/12/20 [History Last Taken 09/22/20] carvedilol 3.125 mg PO BID 07/12/20 [History Last Taken 09/22/20] clopidogrel 75 mg PO DAILY 07/12/20 [History Last Taken 09/22/20] Yesenia Nasal [place] 2 spray INHALATION BID PRN 09/23/20 [History Last Taken 09/22/20] atorvastatin 40 mg PO QHS 09/23/20 [History Last Taken 09/22/20] gabapentin 300 mg PO TID 09/23/20 [History Last Taken 09/22/20] glimepiride 4 mg PO DAILY 09/23/20 [History Last Taken 09/22/20] losartan 50 mg PO DAILY 09/23/20 [History Last Taken 09/22/20] ibuprofen 600 mg PO Q6H PRN PRN tab 09/24/20 [Rx Last Taken Unknown] melatonin 3 mg PO QHS PRN PRN tab 09/24/20 [Rx Last Taken Unknown] acetaminophen 500 mg PO TID 12/03/20 [History Last Taken Unknown] Allergy/AdvReac Type Severity Reaction Status Date / Time misoprostol [From Cytotec] Allergy Hives Verified 12/03/20 12:26 oxycodone [From Percocet] Allergy PT UNSURE Verified 12/03/20 12:26 OF REACTION Penicillins Allergy Hives Verified 12/03/20 12:26 Sulfa (Sulfonamide Allergy Hives Verified 12/03/20 12:26 Antibiotics) artificial sweetners AdvReac Diarrhea Uncoded 12/03/20 12:26 Social History Smoking Status: Former smoker ROS ROS ED Constitutional Constitutional ED: Denies chills or weight loss Eyes Eyes: Denies change in vision or diplopia ENT ENT ED: Denies ear pain, rhinorrhea or sore throat Cardiovascular Cardiovascular: Denies chest pain, orthopnea, palpitations or racing heartbeat Respiratory/Chest Respiratory/Chest: Denies cough, dyspnea or orthopnea Gastrointestinal Gastrointestinal: Denies abdominal pain, diarrhea, nausea or vomiting Genitourinary Genitourinary ED: Denies dysuria, hematuria or urinary frequency Musculoskeletal Musculoskeletal: Denies arthralgias or myalgias Integumentary Denies abscess or rash Neurologic Neurologic: Denies headache(s) or weakness Psychiatric Psychiatric: Denies anxiety, depression, suicidal ideation or suicidal thoughts Endocrine Endocrinology: Denies polydipsia, polyphagia or polyuria Allergic/Immunologic Allergic/Immunologic ED: Denies mouth swelling, tongue swelling or urticaria EXAM Physical Exam Const Vital Signs: 12/03/20 12:21 12/03/20 12:57 12/03/20 14:08 Temperature 98.1 F 98.2 F Temperature Source Oral Temporal Pulse Rate 65 67 Respiratory Rate 17 16 Respiratory Effort Normal Non-Labored Blood Pressure 136/52 H 151/75 H Blood Pressure Mean 80 100 Pulse Ox 94 96 Oxygen Delivery Method Room Air Room Air Positive well nourished and well developed General Appearance ED: well developed HEENT Reports normocephalic, head/scalp atraumatic and moist mucous membranes Eyes PERRL and EOMs intact bilaterally Neck no lymphadenopathy, supple and no JVD Resp normal respiratory effort and clear to auscultation bilaterally Cardio no murmurs Cardio Narrative: Irregularly irregular rhythm GI normal to inspection, nondistended, normoactive bowel sounds and non-tender Palpation: soft Back/Spine no CVA tenderness and normal ROM Extremity normal to inspection General Extremety ED: Negative for edema General Extremity: Negative for edema Neuro oriented x3 and CN's II-XII intact bilaterally Sensorium / Orientation: alert Motor Exam: strength 5/5 throughout Psych mental status grossly normal Mood & Affect: Negative for depressed or tearful Skin no rashes or lesions noted and no wounds MDM MDM MDM Narrative Medical decision making narrative: Basic blood work negative. Patient was observed on the monitor. I spoke with [facility] and they have accepted the patient and we will await for bed assignment. Lab Data Attestation: I reviewed the patient's lab results. Labs: Laboratory Results - last 24 hr 12/03/20 12/03/20 12/03/20 12:34 12:34 12:34 WBC 9.6 RBC 4.06 L Hgb 11.9 L Hct 37.1 L MCV 91.4 MCH 29.3 MCHC 32.1 RDW Std Deviation 55.9 H RDW Coeff of David 16.7 H Plt Count 300 MPV 9.4 Immature Gran % (Auto) 0.700 Neut % (Auto) 77.8 H Lymph % (Auto) 8.6 L Power % (Auto) 8.8 Eos % (Auto) 3.9 Baso % (Auto) 0.2 Absolute Neuts (auto) 7.5 Absolute Lymphs (auto) 0.82 L Nucleated RBC % 0 PT 14.6 INR 1.2 APTT 28.0 Sodium 137 Potassium 3.8 Chloride 106 Carbon Dioxide 25.0 Anion Gap 6 BUN 17 Creatinine 1.00 Estim Creat Clear Calc 61.86 Est GFR (MDRD) Af Amer 93 Est GFR (MDRD) Non-Af 77 BUN/Creatinine Ratio 17.0 Glucose 137 H Calcium 8.9 Magnesium 1.9 Total Bilirubin 0.70 AST 13 L ALT 29 Alkaline Phosphatase 82 Troponin I < 0.015 Total Protein 6.5 Albumin 2.7 L Globulin 3.8 Albumin/Globulin Ratio 0.7 L EKG Initial EKG: Interpretation: Atrial Fibrillation Comments: EKG demonstrates atrial fibrillation at a rate of 61. Discharge Plan Triage Chief Complaint: Palpitations ED Provider: Yadiel Akbar Dx/Rx/DC Orders Clinical Impression: Implanted defibrillator electrode lead fracture, Paroxysmal ventricular fibrillation Prescriptions: No Action clopidogrel 75 MG tablet 75 mg PO DAILY RF: 0 allopurinol 100 MG tablet 200 mg PO DAILY RF: 0 carvedilol 3.125 MG tablet 3.125 mg PO BID RF: 0 aspirin 81 MG tablet,chewable 81 mg PO DAILY@0800 RF: 0 losartan 50 MG tablet 50 mg PO DAILY RF: 0 atorvastatin 40 MG tablet 40 mg PO QHS RF: 0 glimepiride 4 MG tablet 4 mg PO DAILY RF: 0 gabapentin 300 MG capsule 300 mg PO TID RF: 0 Dristan Nasal [place] 2 spray INHALATION BID PRN (Reason: Nasal Congestion) RF: 0 melatonin 3 MG tablet 3 mg PO QHS PRN PRN (Reason: Insomnia) RF: 0 ibuprofen 600 MG tablet 600 mg PO Q6H PRN PRN (Reason: Pain 1-10 Or Fever) RF: 0 acetaminophen 500 MG tablet 500 mg PO TID RF: 0 Referrals: ASHLEY MORGAN [Other] Disposition Disposition: Acute Care Hospital Discharge Location: [facility]
--- NOTE | 2020-12-03 12:59 | ED.RN ---
RECENT DECLINE IN ADL'S PER PT, THERAPY NOT CONSULTED PT BEING TRANSFERRED TO ANOTHER FACILITY.
[2020-12-03 13:04] LABS: Absolute Lymphocyte Count 0.82 X10^3/uL (0.83-4.51); Absolute Neutrophil Count 7.5 X10^3/uL (2.0-7.7); Basophil# 0.02 X10^3/uL; Basophil% 0.2 % (0-1); Eosinophil# 0.37 X10^3/uL; Eosinophils% 3.9 % (0-5); Hematocrit 37.1 % (40-54); Hemoglobin 11.9 g/dL (13.0-16.5); Lymphocyte # 0.82 X10^3/ul (0.83-4.51); Lymphocyte % 8.6 % (19-41); Mean Corp Hgb Conc 32.1 g/dL (32-36); Mean Corpuscular Hgb 29.3 pg (27.0-32.0); Mean Corpuscular Volume 91.4 fL (80-94); Mean Platelet Vol. 9.4 fl (6.2-12.0); Monocyte# 0.84 X10^3/uL; Monocyte% 8.8 % (0-10); NRBC Flagged by Analyzer 0 % (0-5); Neutrophil # 7.45 X10^3/uL (2.7-7.7); Neutrophil % 77.8 % (47-70); Platelet Count 300 K/mm3 (150-450); RBC Distribution Width CV 16.7 % (11.6-14.6); RBC Distribution Width SD 55.9 fl (35.1-43.9); Red Blood Count 4.06 M/mm3 (4.6-6.2); White Blood Count 9.6 K/mm3 (4.4-11.0)
[2020-12-03 13:09] LABS: International Normalized Ratio 1.2; Prothrombin Time (Protime)PT. 14.6 SECONDS (11.7-14.9)
[2020-12-03 13:16] LABS: ALB/GLOB Ratio 0.7 RATIO (0.9-2.4); AST(SGOT) 13 U/L (15-37); Alanine Aminotransfer ALT/SGPT 29 U/L (16-61); Albumin, Serum 2.7 g/dL (3.2-5.0); Alkaline Phosphatase 82 U/L (45-117); Anion Gap 6 (5-15); BUN 17 mg/dL (7-18); Calcium,Total 8.9 mg/dL (8.5-10.1); Chloride 106 mmol/L (98-107); EST Glomerular Filtration Rate 77 mL/min (>60); Est Glom Filt Rate - Afr Amer 93 mL/min (>60); Estimated Creatinine Clearance 61.86 ml/min; Globulin 3.8 g/dL (2.2-4.2); Glucose 137 mg/dL (74-106); Magnesium 1.9 mg/dL (1.6-2.6); Potassium 3.8 mmol/L (3.5-5.1); Protein, Total 6.5 g/dL (6.4-8.2); Sodium Level 137 mmol/L (136-145)
--- NOTE | 2020-12-03 14:03 | NURSING ---
CALLED [facility] ABOUT TRANSFER.
--- NOTE | 2020-12-03 16:29 | NURSING ---
CALLED [facility] FOR BED STATUS. NO BED YET
--- NOTE | 2020-12-03 17:13 | NURSING ---
[facility] [id number] BED 2 NURSE TO NURSE [phone] ONEILL
--- NOTE | 2020-12-03 17:25 | NURSING ---
CALLED [facility], TALKED TO ILYA, ETA IS 60 MIN
== END 2020-12-03 18:40 | disposition short-term general hospital (02) ==
PROVIDERS: Emergency Medicine; Emergency Provider Emergency Medicine
DX: T82.118A Breakdown (mechanical) of other cardiac electronic device, initial encounter (principal); I25.10 Atherosclerotic heart disease of native coronary artery without angina pectoris; I48.91 Unspecified atrial fibrillation; I49.01 Ventricular fibrillation; I10 Essential (primary) hypertension; E11.9 Type 2 diabetes mellitus without complications; Z79.82 Long term (current) use of aspirin; Z79.84 Long term (current) use of oral hypoglycemic drugs; Z79.899 Other long term (current) drug therapy; Z87.891 Personal history of nicotine dependence
CPT/HCPCS: 80053; 83735; 84484; 85025; 85610; 85730; 93005; 99285; A4216

== ENCOUNTER → 2025-07-02 | Outpatient (CLI) | payer MEDICARE, SELFPAY ==
[2025-07-02 14:40] LABS: Mucous, Urine 0 SEEN /hpf (<or=2+); Red Blood Cells-Urine 0 SEEN /hpf (0-5); Squamous Epithelial Cells - UA 0 SEEN /hpf (0-5)
[2025-07-02 14:50] LABS: Color, Urine Yellow (Yellow); Glucose, Dipstick Normal (Normal); Ketone-Dipstick Negative (Negative); Leukocyte Esterase-Dipstick 25 /ul (Negative); Nitrite-Dipstick Negative (Negative); Occult Blood-Urine Negative /ul (Negative); Protein-Dipstick 30 mg/dl (Negative); Specific Gravity, Urine 1.015 (1.002-1.030); Urine Bilirubin Dipstick Negative (Negative)
== END | disposition home or self-care (01) ==
PROVIDERS: Referring Provider Nurse Practitioner Primary Care; Visit Provider Nurse Practitioner Primary Care
DX: N39.0 Urinary tract infection, site not specified (principal); R34 Anuria and oliguria
CPT/HCPCS: 81001; 87077; 87086; 87088; 87186